=== PATIENT | male | born 1955 | race Caucasian/White ===

== ENCOUNTER 2020-07-14 07:44 | Outpatient (CLI) | payer BC, SELFPAY ==
[2020-07-15 15:20] LABS: SARS-CoV-2 RNA PCR Negative
== END 2020-07-14 07:45 | disposition home or self-care (01) ==
LOC: CHSLAB 07:48
PROVIDERS: PCP Internal Medicine; Visit Provider Internal Medicine
DX: J06.9 Acute upper respiratory infection, unspecified (principal); R11.2 Nausea with vomiting, unspecified; Z20.828 Contact with and (suspected) exposure to other viral communicable diseases
CPT/HCPCS: 87635; C9803; U0003

== ENCOUNTER 2020-07-18 12:38 | Inpatient (IN) | payer BC, SELFPAY ==
--- NOTE | ~2020-07-18 | CT_ITS ---
EXAMINATION: CT chest abdomen pelvis w con DATE: 07/18/2020 18:05 INDICATION: Left pleuritic chest pain. Epigastric abdominal pain, nausea. TECHNIQUE: Computed tomography (CT) of the chest, abdomen, and pelvis was performed with 100 cc Omnip aque 350 intravenous contrast. Automated exposure control and iterative reconstruction technique were employed. Exam dose: 1938.90 mGy-cm total exam DLP. COMPARISON: None FINDINGS: CHEST CT: There is homogeneous enhancement within normal size of the thyroid gland. No thoracic aortic aneurysm or dissection. Normal heart size. No pericardial effusion. No right pleural effusion. Likely reactive lymph nodes including one larger node at lateral aspect of the aortopulmonary window measuring 10.5 x 18.5 mm. There is moderate loculated left pleural effusion. There is prominent patchy consolidation with air b ronchograms involving the left lower lobe. There is minimal dependent infiltrate or atelectasis in the posterior segment of the left upper lobe. There is minimal atelectasis at the base of the middle lobe. ABDOMEN/PELVIS CT: There are some focal areas of probable hepatic steatosis involving the left and right hepatic lobes. Borderline splenomegaly, the spleen measuring up to 13.5 cm vertical dimension. There is soft tissue density in the dependent aspect of the gallbladder, likely due to cholelithiasis versus sludge or less likely soft tissue mass lesion. No bile duct or pancreatic duct dilatation. No pancreatic mass lesion or calcification. Approximately 1.6 cm Calcifications right adrenal gland Moderate diffuse thickening of the urinary bladder wall Moderate prostatomegaly Fluid levels of the colon, which may indicate colitis probable myelolipoma of the left adrenal gland. There are some calcifications of the right adrenal gland. No renal mass lesion. No urinary tract calculus or hydroureteronephrosis. There is atherosclerotic calcification of the abdominal aorta. No intraperitoneal or retroperitoneal or pelvic mass lesion or adenopathy or ascites. There is moderate diffuse nonspecific thickening of the wall of the urinary bladder. Moderate prostat omegaly. There are numerous fluid levels of the colon which is abnormal unless there have been recent enemas. This may indicate colitis. Status post appendectomy. No bowel obstruction, bowel wall thickening, pneumatosis or intraperitoneal free air. Status post lower anterior abdominal wall hernia repair. Degenerative changes of the cervical, thoracic and lumbar spine. No suspicious osteolytic or osteobla stic lesions are detected. 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 Reviewed, dictated and finalized at [facility]. 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
--- NOTE | ~2020-07-18 | CT_ITS ---
EXAMINATION: CT brain wo con DATE: 07/18/2020 18:04 INDICATION: Confusion. Altered mental status. TECHNIQUE: Computed tomography (CT) of the head was performed without intravenous contrast. The mA wa s adjusted according to patient size. Iterative reconstruction technique was employed. Exam dose: 68 1.00 mGy-cm total exam DLP. COMPARISON: None FINDINGS: No intracranial mass lesion or hemorrhage or cerebrovascular accident is evident. No midlin e shift or mass effect. There is moderately prominent bilateral cerebellar atrophy and mild cerebral volume loss. There is no nspecific diminished attenuation cerebral white matter, likely due to chronic small vessel ischemic c hange. Some carotid siphon internal carotid artery calcifications are noted. No subdural or epidural hematoma is detected. Mucous retention cyst or polyp in the right maxillary sinus and some focal soft tissue thickening genevieve ng the medial wall left maxillary sinus are noted. There is mild soft tissue thickening in some ethmoid air cells and mild mucoperiosteal thickening of the right sphenoid sinus. The mastoid air cells are unremarkable. No fracture or bone destruction of the cranial vault. IMPRESSION: Cerebral atherosclerosis and chronic small vessel ischemic changes of the cerebral white matter Prominent cerebellar and mild cerebral volume loss No acute intracranial finding Reviewed, dictated and finalized at [facility]. Reviewed, dictated and finalized at [facility]. P CATCHER
[2020-07-18 12:56] VITALS: BP 127/74; PULSE 75; RESP 20; TEMP 36.8
[2020-07-18 12:58] VITALS: BMI 37.0
[2020-07-18 13:05] VITALS: RESP 18; O2SAT 95
--- NOTE | 2020-07-18 13:15 | PM.IMHP ---
H&P: HPI History of Present Illness Date/Time: 07/18/20 13:15 <KLARISSA Javier - Last Filed: 07/18/20 15:28> Chief complaint: pneumonia <KLARISSA Javier - Last Filed: 07/18/20 15:28> Narrative: Tavon Marsh is a 65 year old male that presented to his primary care physician office with fatigue, shortness of breath, altered mental status, and decreased appetite. Patient has a past medical history of hyperlipidemia, hypertension, sleep apnea, PUD and steatohepatitis. According to the patient's patient has had nausea and vomiting for approximately 1 week. He later developed shortness of breath, cough, decreased appetite, fatigue, subjective low-grade fever, and chills. According to patient's he has been is also confused and laid in the bed for several days he did have a recent Covid test which was negative. Patient primary care physician would like for the patient to be admitted for community-acquired pneumonia, nausea vomiting and dehydration in hypersomnolence and mild disorientation. I have started IV fluid for the patient he will get a CT of the head abdomen and pelvis .I have also ordered a UA with a lactic acid CBC, BMP ,CRP and ammonia level. All tests are pending .the patient denies, CP, palpitation, extremity numbness, lightheadedness, dizziness, and constipation . Patient has chronic diarrhea <KLARISSA Javier - Last Filed: 07/18/20 15:28> Review of Systems Review of Systems: All systems reviewed & are unremarkable except as noted in HPI and below (10 point system review) <KLARISSA Javier - Last Filed: 07/18/20 15:28> [facility] Past Medical History Medical History: Medical History (Updated 07/18/20 @ 14:31 by KLARISSA Javier) Erectile dysfunction HLD (hyperlipidemia) HTN (hypertension) Obesity Osteoarthritis Primarily affecting the knees PUD (peptic ulcer disease) Rheumatoid arthritis On pathology of debrided material from knee Sleep apnea dx'd 2010 positive sleep study uses CPAP moderate GISELE, AHI-14 darlin SaO2 89% Steatohepatitis Mild portal fibrosis, moderate iron accumulation on biopsy 07/29/2012 <KLARISSA Javier - Last Filed: 07/18/20 15:28> Surgical History Surgical History: Surgical History (Updated 07/18/20 @ 13:40 by KLARISSA Javier) H/O hernia repair Bilateral inguinal with mesh H/O knee surgery History of appendectomy <KLARISSA Javier - Last Filed: 07/18/20 15:28> Family History Family History: Family History (Updated 07/18/20 @ 13:06 by Shante Jay RN) Mother FH: heart attack Father Emphysema lung Sibling Hypertension <KLARISSA Javier - Last Filed: 07/18/20 15:28> Social History Social History: Social History Smoking status: Never smoker Alcohol intake: current Drinks per week: 3 Substance use: never Substance use type: does not use Gender identity (if verbalized by the patient): Male Sexual Orientation (if Verbalized by the Patient): Straight or Heterosexual Spiritual care concerns: No <KLARISSA Javier - Last Filed: 07/18/20 15:28> Meds Home Medications and Allergies Home medications: Home Medications Medication Instructions Recorded Confirmed Type Benadryl 25 mg PO HS 07/18/20 07/18/20 History allopurinol 300 mg PO DAILY 07/18/20 07/18/20 History carvedilol 25 mg PO BID 07/18/20 07/18/20 History fexofenadine [Allergy Relief 180 mg PO DAILY 07/18/20 07/18/20 History (fexofenadine)] furosemide 40 mg PO DAILY 07/18/20 07/18/20 History hydrochlorothiazide 25 mg PO DAILY 07/18/20 07/18/20 History montelukast 10 mg PO QPM 07/18/20 07/18/20 History paroxetine HCl 10 mg PO DAILY 07/18/20 07/18/20 History potassium chloride 20 meq PO BIDWMEAL 07/18/20 07/18/20 History pravastatin 40 mg PO DAILY 07/18/20 07/18/20 History vitamin E 800 unit PO DIRECTED 07/18/20 07/18/20 History <KLARISSA Javier - Last Fi
[2020-07-18 13:16] VITALS: BMI 37.0
[2020-07-18] MEDS: SODIUM CHLORIDE 0.9% IV 1,000 ML 100 ML IV CONT (13:29)
[2020-07-18 13:45] LABS: Basophils Absolute Auto 0.03 K/mm3 (0.00-0.10); Basophils Percent Auto 0.3 % (0.0-1.0); Eosinophils Absolute Auto 0.05 K/mm3 (0.02-0.50); Eosinophils Percent Auto 0.6 % (1.0-6.0); Hematocrit 38.5 % (40.0-54.0); Hemoglobin 13.7 g/dL (14.0-18.0); Immature Granulocyte Absolute 0.77 K/mm3 (0.00-0.00); Immature Granulocyte Percent A 8.6 % (0.0-0.0); Lymphocytes Absolute Auto 2.05 K/mm3 (1.10-4.50); Lymphocytes Percent Auto 22.8 % (18.0-42.0); Mean Corpuscular HGB Conc 35.6 g/dL (32.0-36.0); Mean Corpuscular Hemoglobin 33.9 pg (27.0-31.0); Mean Corpuscular Volume 95.3 fL (78.0-102.0); Monocytes Absolute Auto 1.04 K/mm3 (0.10-0.90); Monocytes Percent Auto 11.6 % (2.0-11.0); Neutrophils Absolute Auto 5.1 K/mm3 (1.7-7.2); Neutrophils Percent Auto 56.1 % (50.0-70.0); Platelet Count Result 162 K/mm3 (150-420); Red Blood Count 4.04 M/mm3 (4.70-6.10); Red Cell Distribution Width 12.1 % (11.6-14.4)
[2020-07-18 14:24] LABS: Magnesium 2.1 mg/dL (1.8-2.4)
[2020-07-18 14:27] LABS: Ammonia 54 umol/L (11-32)
[2020-07-18 14:36] LABS: Lactic Acid Reflex 1.4 mmol/L (0.4-2.0)
[2020-07-18 14:43] LABS: CRP > 25.0 mg/dL (0.0-0.9)
[2020-07-18 14:43] LABS: BNP 94 pg/mL (0-100)
[2020-07-18 14:55] LABS: Hemoglobin A1C 5.3 % (<5.7)
[2020-07-18 15:00] LABS: Alanine Aminotransferase 57 U/L (16-63); Albumin Level 2.8 g/dL (3.4-5.0); Alkaline Phosphatase 103 U/L (46-116); Anion Gap 13 mmol/L (8-16); Aspartate Amino Transferase 53 U/L (15-37); Bilirubin,Total 1.2 mg/dL (0.00-1.00); Blood Urea Nitrogen 15 mg/dL (7-18); Calcium 8.8 mg/dL (8.5-10.1); Carbon Dioxide 28 mmol/L (21-32); Chloride 91 mmol/L (98-108); Estimated CRCL calculation 87 ml/min; Estimated Glomerular Filt Rate > 60; Glucose 96 mg/dL (70-99); Osmolality Calculated 274 mOsm/kg (285-295); Potassium 3.2 mmol/L (3.5-5.1); Sodium 132 mmol/L (136-145); Total Protein 6.1 g/dL (6.4-8.2)
[2020-07-18] MEDS: LACTULOSE 20 GM/30 ML UDC PO (15:20)
[2020-07-18 15:37] LABS: Add Urine Microscopic? YES; Appearance Urine Clear (Clear); Bilirubin Urine Negative (Negative); Blood Urine Negative (Negative); Color Urine Yellow (Yellow); Glucose Urine UA Negative (Negative); Ketones Urine Negative (Negative); Leukocyte Esterase Ur Negative (Negative); Nitrate Urine Negative (Negative); Protein Urine Negative (Negative)
[2020-07-18 15:43] LABS: Bacteria Urine 1+ /hpf; RBC Urine 0-2 /hpf (0-2); Squamous Epithelial Cell Urine Few /hpf (Few); WBC Urine 0-3 /hpf (0-3)
[2020-07-18 16:00] VITALS: BP 137/68; PULSE 86; RESP 18; TEMP 37.6; O2SAT 95
[2020-07-18] MEDS: KCL 20 MEQ/SW 100 ML 100 ML 50 MEQ IVPB (16:07)
[2020-07-18] MEDS: POTASSIUM CHLORIDE 20 MEQ TABLET PO (16:40)
[2020-07-18] MEDS: POTASSIUM CHLORIDE 20 MEQ TABLET 40 MEQ PO (16:40)
[2020-07-18] MEDS: ENOXAPARIN 40 MG/0.4 ML SYRINGE SUB-Q (16:40)
[2020-07-18] MEDS: MONTELUKAST SODIUM 10 MG TABLET PO (16:41)
[2020-07-18 20:01] VITALS: BP 130/69; PULSE 86; TEMP 37.4; O2SAT 93
[2020-07-18 20:20] VITALS: PULSE 86
[2020-07-18] MEDS: diphenhydrAMINE HCl INJ 50 MG/ML VIAL IV PUSH (20:20)
[2020-07-18] MEDS: MELATONIN 5 MG TABLET PO (20:20)
[2020-07-18] MEDS: carvediloL 12.5 MG TABLET 25 MG PO (20:20)
--- NOTE | 2020-07-18 20:51 | PC.NURSE ---
Patient requested medication to help him sleep. Continues to experience pain in left lower side. Declined pain medication at this time-hoping to go to sleep. LLL sounds diminished with high pitched wheeze.
[2020-07-18 23:51] VITALS: BP 108/63; PULSE 73; RESP 18; TEMP 37.6; O2SAT 93
--- NOTE | 2020-07-19 02:00 | PC.NURSE ---
pt reports pain in left side, and difficulty sleeping, pt given medication see MAR
[2020-07-19] MEDS: SODIUM CHLORIDE 0.9% IV 1,000 ML 100 ML IV CONT ×2 (02:02→15:30)
[2020-07-19] MEDS: traZODone HCL 50 MG TABLET PO (02:03)
[2020-07-19] MEDS: HYDROcodone/acetaminophen (*CRX) 5-325 MG TABLET 1 TAB PO ×4 (02:03→20:58)
[2020-07-19 05:49] LABS: Hematocrit 37.8 % (40.0-54.0); Mean Corpuscular HGB Conc 34.4 g/dL (32.0-36.0); Mean Corpuscular Hemoglobin 33.1 pg (27.0-31.0); Mean Corpuscular Volume 96.2 fL (78.0-102.0); Mean Platelet Volume 9.9 fl (8.7-11.0); Platelet Count Result 164 K/mm3 (150-420); Red Blood Count 3.93 M/mm3 (4.70-6.10); Red Cell Distribution Width 12.1 % (11.6-14.4); White Blood Count 8.8 K/mm3 (4.8-10.8)
[2020-07-19 06:10] LABS: Alanine Aminotransferase 61 U/L (16-63); Albumin Level 2.5 g/dL (3.4-5.0); Alkaline Phosphatase 101 U/L (46-116); Anion Gap 9 mmol/L (8-16); Aspartate Amino Transferase 48 U/L (15-37); Bilirubin,Total 0.8 mg/dL (0.00-1.00); Blood Urea Nitrogen 12 mg/dL (7-18); Calcium 9.2 mg/dL (8.5-10.1); Carbon Dioxide 30 mmol/L (21-32); Chloride 95 mmol/L (98-108); Estimated CRCL calculation 89 ml/min; Estimated Glomerular Filt Rate > 60; Glucose 104 mg/dL (70-99); Osmolality Calculated 277 mOsm/kg (285-295); Potassium 3.2 mmol/L (3.5-5.1); Sodium 134 mmol/L (136-145); Total Protein 6.7 g/dL (6.4-8.2)
[2020-07-19 06:13] LABS: Band Neutrophils Percent 2 % (0-6); Basophils Percent Manual 0 % (0-1); Eosinophils Absolute Manual 0.08 K/mm3 (0.02-0.5); Eosinophils Percent Manual 1 % (1-6); Lymphocytes Absolute Manual 2.37 K/mm3 (1.1-4.5); Lymphocytes Percent Manual 27 % (18-44); Metamyelocytes Percent 1 %; Monocytes Absolute Manual 0.35 K/mm3 (0.1-0.90); Monocytes Percent Manual 4 % (3-9); Myelocytes Percent 1 %; Neutrophils Percent Manual 64 % (46-73); Platelet Estimate Adequate (Adequate)
[2020-07-19 06:26] LABS: CRP 23.4 mg/dL (0.0-0.9)
[2020-07-19 08:00] VITALS: BP 137/71; PULSE 69; RESP 18; TEMP 37.2; O2SAT 94
[2020-07-19] MEDS: PRAVASTATIN SODIUM 20 MG TABLET 40 MG PO (09:14)
[2020-07-19] MEDS: PARoxetine 20 MG TABLET 10 MG PO (09:15)
[2020-07-19] MEDS: POTASSIUM CHLORIDE 20 MEQ TABLET 40 MEQ PO (09:15)
[2020-07-19 09:16] VITALS: PULSE 69
[2020-07-19] MEDS: carvediloL 12.5 MG TABLET 25 MG PO ×2 (09:16→20:57)
[2020-07-19] MEDS: LORATADINE 10 MG TABLET PO (09:16)
[2020-07-19] MEDS: ACETAMINOPHEN 500 MG TABLET 1000 MG PO (09:17)
[2020-07-19] MEDS: allopurinoL 300 MG TABLET PO (09:17)
[2020-07-19] MEDS: PANTOPRAZOLE SOD SESQUIHYDRATE 20 MG TAB PO (09:17)
[2020-07-19] MEDS: POTASSIUM CHLORIDE 20 MEQ TABLET PO ×2 (09:19→16:50)
[2020-07-19] MEDS: VITAMIN E 400 UNIT CAPSULE 800 UNIT PO (09:53)
--- NOTE | 2020-07-19 14:15 | PM.IMPN ---
Progress Note: A&P Assessment and Plan (1) Depression with anxiety: Code(s): F41.8 - Other specified anxiety disorders Status: Acute Assessment and Plan: 07/19/2020 Continue Paxil, patient has normal mood and affect (2) PUD (peptic ulcer disease): Code(s): K27.9 - Peptic ulcer, site unspecified, unspecified as acute or chronic, without hemorrhage or perforation Status: Acute Assessment and Plan: 07/19/2020 Continue Protonix, will continue on discharge (3) Sleep apnea: Code(s): G47.30 - Sleep apnea, unspecified Status: Acute Assessment and Plan: 07/19/2020 patient using CPAP from home (4) HTN (hypertension): Code(s): I10 - Essential (primary) hypertension Status: Acute Assessment and Plan: 07/19/2020 vital signs stable, low-grade temp 99.7 F this morning this afternoon 99 F, Continue carvedilol 25 mg twice daily, Hydrochlorothiazide 25 mg daily on hold due to dehydration, Will adjust medication as needed, may need to decrease diuretic on discharge (5) HLD (hyperlipidemia): Code(s): E78.5 - Hyperlipidemia, unspecified Status: Acute Assessment and Plan: Continue statins (6) Dehydration: Code(s): E86.0 - Dehydration Status: Acute Assessment and Plan: Continue IV fluids (7) Encephalopathy: Code(s): G93.40 - Encephalopathy, unspecified Status: Acute Assessment and Plan: 07/19/2020 patient does not have any symptoms at this time, continue lactulose, recheck ammonia level in morning, CRP decreased today Ammonia level slightly elevated patient given lactulose, CT of head chest abdomen pelvis resulted above (8) Nausea & vomiting: Code(s): R11.2 - Nausea with vomiting, unspecified Status: Acute Assessment and Plan: 07/19/2020 resolved (9) Hypersomnolence: Code(s): G47.10 - Hypersomnia, unspecified Status: Acute Assessment and Plan: 07/19/2020 resolved (10) Obesity: Code(s): E66.9 - Obesity, unspecified Status: Acute Assessment and Plan: 07/19/2020 Educated on healthy lifestyle, heart healthy diet on discharge (11) Pneumonia: Code(s): J18.9 - Pneumonia, unspecified organism Status: Acute Assessment and Plan: 07/19/2020 patient is currently on room air SpO2 93% or better, Rocephin and azithromycin, will continue azithromycin on discharge to complete course, patient case breathing is improved Subjective Date/time seen: 07/19/20 14:15 patient states he is feeling better able to breathe better and apparently is nausea and vomiting is resolved because he is feeling like eating this morning. No complaints of chest pain or shortness of breath at this time. Patient has no other questions aside from the discovered loculation in his lung and what is to be the plan moving forward. Review of Systems Constitutional: Constitutional: Denies chills, Denies fatigue, Denies fever(s), Denies headache(s) and Reports increased appetite (and no nausea or vomiting) Cardiovascular: Cardiovascular: Reports no additional cardiovascular complaints, Denies chest pain, Denies chest pain at rest and Denies chest pain with activity Respiratory: Respiratory: Reports no additional respiratory complaints, Denies dyspnea and Denies dyspnea on exertion Gastrointestinal: Gastrointestinal: Reports no additional gastrointestinal complaints Comments: patient says he is hungry in would like to have a big breakfast Musculoskeletal: Musculoskeletal: Reports no additional musculoskeletal complaints Neurologic: Reports system reviewed and no additional complaints, except as documented Exam Narrative: Exam Narrative: patient's primary care provider was contacted for the discussion of the plan for moving forward regarding the loculated area in the lung. The outcome of this is to discharge patient in the morning have a quick follow-up wit
[2020-07-19 16:00] VITALS: BP 121/55; PULSE 67; RESP 18; TEMP 37.5; O2SAT 96
[2020-07-19] MEDS: ENOXAPARIN 40 MG/0.4 ML SYRINGE SUB-Q (16:50)
[2020-07-19] MEDS: MONTELUKAST SODIUM 10 MG TABLET PO (16:58)
[2020-07-19 20:00] VITALS: PULSE 75; RESP 18; O2SAT 97
[2020-07-19 20:57] VITALS: PULSE 75
[2020-07-19] MEDS: MELATONIN 5 MG TABLET PO (20:58)
[2020-07-20] VITALS: BP 130/50; PULSE 78; RESP 20; TEMP 37.2; O2SAT 94
[2020-07-20] MEDS: SODIUM CHLORIDE 0.9% IV 1,000 ML 100 ML IV CONT (01:06)
[2020-07-20 05:32] LABS: Hematocrit 36.4 % (40.0-54.0); Hemoglobin 12.3 g/dL (14.0-18.0); Mean Corpuscular HGB Conc 33.8 g/dL (32.0-36.0); Mean Corpuscular Hemoglobin 33.2 pg (27.0-31.0); Mean Corpuscular Volume 98.4 fL (78.0-102.0); Mean Platelet Volume 9.7 fl (8.7-11.0); Platelet Count Result 172 K/mm3 (150-420); Red Cell Distribution Width 12.7 % (11.6-14.4)
[2020-07-20 05:53] LABS: Alanine Aminotransferase 58 U/L (16-63); Albumin Level 2.1 g/dL (3.4-5.0); Alkaline Phosphatase 84 U/L (46-116); Anion Gap 7 mmol/L (8-16); Aspartate Amino Transferase 44 U/L (15-37); Bilirubin,Total 0.5 mg/dL (0.00-1.00); Blood Urea Nitrogen 11 mg/dL (7-18); Calcium 8.4 mg/dL (8.5-10.1); Carbon Dioxide 28 mmol/L (21-32); Chloride 101 mmol/L (98-108); Estimated CRCL calculation 100 ml/min; Estimated Glomerular Filt Rate > 60; Glucose 105 mg/dL (70-99); Osmolality Calculated 281 mOsm/kg (285-295); Potassium 3.5 mmol/L (3.5-5.1); Sodium 136 mmol/L (136-145); Total Protein 5.9 g/dL (6.4-8.2)
[2020-07-20 06:11] LABS: Ammonia < 10 umol/L (11-32)
[2020-07-20 08:00] VITALS: BP 148/82; PULSE 76; RESP 16; TEMP 36.6; O2SAT 96
[2020-07-20 08:48] VITALS: PULSE 68
[2020-07-20] MEDS: LORATADINE 10 MG TABLET PO (08:48)
[2020-07-20] MEDS: carvediloL 12.5 MG TABLET 25 MG PO (08:48)
[2020-07-20] MEDS: VITAMIN E 400 UNIT CAPSULE 800 UNIT PO (08:48)
[2020-07-20] MEDS: PRAVASTATIN SODIUM 20 MG TABLET 40 MG PO (08:48)
[2020-07-20] MEDS: PARoxetine 20 MG TABLET 10 MG PO (08:49)
[2020-07-20] MEDS: POTASSIUM CHLORIDE 20 MEQ TABLET PO (08:50)
[2020-07-20] MEDS: PANTOPRAZOLE SOD SESQUIHYDRATE 20 MG TAB PO (08:50)
[2020-07-20] MEDS: allopurinoL 300 MG TABLET PO (08:50)
--- NOTE | 2020-07-20 09:50 | PM.DS ---
DS: Admitting Diagnosis Admitting Diagnosis Admitting Diagnosis: pneumonia DS: Discharge Diagnosis Discharge Diagnosis (1) Depression with anxiety: Code(s): F41.8 - Other specified anxiety disorders Status: Acute Assessment and Plan: 07/19/2020 Continue Paxil, patient has normal mood and affect 07/20/2020 Will continue Paxil on discharge (2) PUD (peptic ulcer disease): Code(s): K27.9 - Peptic ulcer, site unspecified, unspecified as acute or chronic, without hemorrhage or perforation Status: Acute Assessment and Plan: 07/19/2020 Continue Protonix, will continue on discharge 07/20/2020 will continue home medication on discharge (3) Sleep apnea: Code(s): G47.30 - Sleep apnea, unspecified Status: Acute Assessment and Plan: 07/19/2020 patient using CPAP from home 07/20/2020 patient has been compliant with the CPAP in the hospital and will continue on discharge (4) HTN (hypertension): Code(s): I10 - Essential (primary) hypertension Status: Acute Assessment and Plan: 07/19/2020 vital signs stable, low-grade temp 99.7 F this morning this afternoon 99 F, Continue carvedilol 25 mg twice daily, Hydrochlorothiazide 25 mg daily on hold due to dehydration, Will adjust medication as needed, may need to decrease diuretic on discharge 07/20/2020 vital signs have been stable low-grade temp 99? F, no changes to medication on discharge (5) HLD (hyperlipidemia): Code(s): E78.5 - Hyperlipidemia, unspecified Status: Acute Assessment and Plan: Continue statins (6) Dehydration: Code(s): E86.0 - Dehydration Status: Acute Assessment and Plan: 07/20/2020 IV fluids discontinued this time, encourage patient to drink fluids after discharge (7) Encephalopathy: Code(s): G93.40 - Encephalopathy, unspecified Status: Acute Assessment and Plan: 07/19/2020 patient does not have any symptoms at this time, continue lactulose, recheck ammonia level in morning, CRP decreased today 07/20/2020 ammonia level normalized this morning, continues to be asymptomatic (8) Nausea & vomiting: Code(s): R11.2 - Nausea with vomiting, unspecified Status: Acute Assessment and Plan: 07/19/2020 resolved (9) Hypersomnolence: Code(s): G47.10 - Hypersomnia, unspecified Status: Acute Assessment and Plan: 07/19/2020 resolved (10) Obesity: Code(s): E66.9 - Obesity, unspecified Status: Acute Assessment and Plan: 07/19/2020 Educated on healthy lifestyle, heart healthy diet on discharge (11) Pneumonia: Code(s): J18.9 - Pneumonia, unspecified organism Status: Acute Assessment and Plan: 07/19/2020 patient is currently on room air SpO2 93% or better, Rocephin and azithromycin, will continue azithromycin on discharge to complete course, patient case breathing is improved 07/20/2020 vital signs remained stable, maintaining SpO2 94% or better on room air, patient did have a little bit of blood tinged sputum this morning in minimal amounts less than 5 mL, there was no change in respiratory status, no complaints of shortness of breath or increased work of breathing, discussed with his primary care provider who was okay with patient being discharged with close follow-up, and will be sending patient to a hose mender for the loculated pleural effusion DS: Summary Time Spent with Patient Time attestation: Total time spent providing and/or coordinating discharge services: < 30 min Exam Const: General: cooperative, comfortable, no acute distress, alert, awake and Physically active Nutritional Appearance: obese Resp: Effort & Inspection: normal respiratory effort Auscultation: clear to auscultation bilaterally (diminished on the left side ) Cardio: Jugular venous distension: no JVD Rate: regular rate Rhythm: regular rhythm Heart sounds: S1 normal heart sound pre
--- NOTE | 2020-07-22 14:13 | PC.NURSE ---
Unable to contact for discharge call back.
== END 2020-07-20 12:00 | disposition home or self-care (01) | DRG 194 ==
PROVIDERS: Nurse Practitioner; Nurse Practitioner Family; Admitting Provider Emergency Medicine; PCP Internal Medicine; Visit Provider Emergency Medicine
DX: J18.9 Pneumonia, unspecified organism (principal); G93.40 Encephalopathy, unspecified; J90 Pleural effusion, not elsewhere classified; E86.0 Dehydration; I10 Essential (primary) hypertension; M06.9 Rheumatoid arthritis, unspecified; K27.9 Peptic ulcer, site unspecified, unspecified as acute or chronic, without hemorrhage or perforation; K75.81 Nonalcoholic steatohepatitis (NASH); M17.10 Unilateral primary osteoarthritis, unspecified knee; E78.5 Hyperlipidemia, unspecified; G47.33 Obstructive sleep apnea (adult) (pediatric); F32.9 Major depressive disorder, single episode, unspecified; E66.9 Obesity, unspecified
CPT/HCPCS: 36415; 70450; 71260; 74177; 80053; 81001; 82140; 83036; 83605; 83735; 83880; 85025; 85027; 86140; 87040; 97110; 97161; 97165; 97530; 97535; A9270; J0456; J0696; J1200; J1650; J3480; J7030; Q9965

== ENCOUNTER 2020-07-29 08:52 | Outpatient (CLI) | payer BC, SELFPAY ==
--- NOTE | ~2020-07-29 | CT_ITS ---
EXAMINATION: CT chest wo con DATE: 07/29/2020 09:31 INDICATION: Left chest pain. Left lower lobe consolidation, moderate loculated left pleural effusion, minimal infiltrate or atelectasis in the dependent posterior segment of left upper lobe and base of middle lobe on 07/28/2020 CT chest abdomen pelvis examination TECHNIQUE: Computed tomography (CT) of the chest was performed without intravenous contrast. Automate d exposure control and iterative reconstruction technique were employed. Exam dose: 840.55 mGy-cm to narinder exam DLP. COMPARISON: 07/28/2020 CT chest abdomen pelvis FINDINGS: Mild bilateral gynecomastia. No thoracic aortic aneurysm. Normal heart size. There is mild thoracic aortic and coronary artery melissa cification. No hilar or mediastinal mass lesion or lymphadenopathy is evident. There is mild groundglass infiltrate and/atelectasis at the base of the middle lobe. There is discoid atelectasis or scarring of the lingula. There is patchy left lower lobe atelectasis and consolidation with air bronchograms, particularly in the posterior basilar segment. There are multiple small dependent gallstones. No gallbladder wall thickening or pericholecystic flui d or stranding. There are some calcifications of the normal size right adrenal gland. Small lipoma or myelolipoma of the left adrenal gland. Degenerative disc disease of the included lower thoracic spine. Diffuse idiopathic skeletal hyperostosis of the thoracic spine. IMPRESSION: Patchy left lower lobe atelectasis/consolidation, involving particularly the posterior b asilar segment Discoid atelectasis or scarring of the lingula Mild groundglass infiltrate or atelectasis at the base of the middle lobe Cholelithiasis Reviewed, dictated and finalized at [facility]. Reviewed, dictated and finalized at [facility]. LATORY PRODUCT MANAGER IMPRESSION: Patchy left lower lobe atelectasis/consolidation, involving partic ularly the posterior basilar segment Discoid atelectasis or scarring of the lingula Mild groundglass infiltrate or atelectasis at the base of the middle lobe Cholelithiasis
== END 2020-07-29 08:53 | disposition home or self-care (01) ==
LOC: CHSIMG 08:56
PROVIDERS: PCP Internal Medicine
DX: J90 Pleural effusion, not elsewhere classified (principal)
CPT/HCPCS: 71250

== ENCOUNTER 2020-08-19 09:11 | Outpatient (CLI) | payer BC, SELFPAY ==
--- NOTE | ~2020-08-19 | XR_ITS ---
EXAMINATION: XR chest 2V DATE: 08/19/2020 10:32 INDICATION: Chest tightness. Pneumonia. TECHNIQUE: Frontal and lateral views of the chest were obtained. COMPARISON: Chest 2 views 08/31/2014, chest CT 07/29/2020, 07/18/2020 FINDINGS: There are airspace opacities in left lower lung zone. Left-sided pleural thickening is seen . No pleural effusion or pneumothorax. The heart size is normal. IMPRESSION: 1. Persistent airspace opacities in left lower lung zone, consistent with pneumonia and scarring. Reviewed, dictated and finalized at [facility]. ICATIONS SUPPORT SPECIALIST IMPRESSION: 1. Persistent airspace opacities in left lower lung zone, consistent with pneum onia and scarring.
[2020-08-19 10:50] LABS: Basophils Absolute Auto 0.01 K/mm3 (0.00-0.10); Basophils Percent Auto 0.3 % (0.0-1.0); Eosinophils Absolute Auto 0.09 K/mm3 (0.02-0.50); Eosinophils Percent Auto 2.3 % (1.0-6.0); Hematocrit 40.6 % (40.0-54.0); Hemoglobin 14.1 g/dL (14.0-18.0); Immature Platelet Fraction Pct 2.7 % (1.0-7.0); Lymphocytes Absolute Auto 1.85 K/mm3 (1.10-4.50); Lymphocytes Percent Auto 46.8 % (18.0-42.0); Mean Corpuscular HGB Conc 34.7 g/dL (32.0-36.0); Mean Corpuscular Hemoglobin 33.1 pg (27.0-31.0); Mean Corpuscular Volume 95.3 fL (78.0-102.0); Mean Platelet Volume 10.4 fl (8.7-11.0); Monocytes Absolute Auto 0.49 K/mm3 (0.10-0.90); Monocytes Percent Auto 12.4 % (2.0-11.0); Neutrophils Absolute Auto 1.5 K/mm3 (1.7-7.2); Neutrophils Percent Auto 38.2 % (50.0-70.0); Platelet Count Result 92 K/mm3 (150-420); Red Blood Count 4.26 M/mm3 (4.70-6.10); Red Cell Distribution Width 12.7 % (11.6-14.4)
[2020-08-19 10:51] LABS: Alanine Aminotransferase 46 U/L (16-63); Albumin Level 3.8 g/dL (3.4-5.0); Alkaline Phosphatase 61 U/L (46-116); Anion Gap 8 mmol/L (8-16); Aspartate Amino Transferase 36 U/L (15-37); Bilirubin,Total 0.5 mg/dL (0.00-1.00); Blood Urea Nitrogen 15 mg/dL (7-18); CRP 0.5 mg/dL (0.0-0.9); Calcium 8.7 mg/dL (8.5-10.1); Carbon Dioxide 29 mmol/L (21-32); Chloride 99 mmol/L (98-108); Estimated Glomerular Filt Rate > 60; Glucose 112 mg/dL (70-99); Osmolality Calculated 283 mOsm/kg (285-295); Potassium 3.9 mmol/L (3.5-5.1); Sodium 136 mmol/L (136-145)
[2020-08-19 10:54] LABS: Ammonia < 10 umol/L (11-32)
[2020-08-19 10:57] LABS: SARS-CoV-2 Ag Positive (Negative)
== END 2020-08-19 09:12 | disposition home or self-care (01) ==
LOC: CHSLAB 09:13
PROVIDERS: PCP Internal Medicine; Visit Provider Internal Medicine
DX: U07.1 COVID-19 (principal); J18.9 Pneumonia, unspecified organism; E87.6 Hypokalemia
CPT/HCPCS: 36415; 71046; 80053; 82140; 85025; 85055; 86140; 86769; 87426

== ENCOUNTER 2020-08-30 10:45 | Emergency (ER) | payer BC, SELFPAY ==
--- NOTE | ~2020-08-30 | XR_ITS ---
EXAMINATION: XR chest 1V portable EXAM DATE: 08/30/2020 11:14 INDICATION: uri, dyspnea, hx of COVID. TECHNIQUE: Portable AP frontal chest x-ray was obtained. Comparison is made to prior examination from 08/19/2020. FINDINGS: Previous exam had left lower lobe pneumonia and atelectasis. On this exam there is now more extensive bilateral peripheral acute airspace disease, distribution is consistent with COVID pneumon ia. Relative sparing of the left upper lobe. No pneumothorax or pleural effusion. Cardiomediastinal s ilhouette is normal. There are no osseous abnormalities identified. IMPRESSION: Moderate amount of bilateral peripheral acute airspace disease likely COVID pneumonia. Reviewed, dictated and finalized at location B. EXTINGUISHER INSTALLER IMPRESSION: Moderate amount of bilateral peripheral acute airspace disease lik quique COVID pneumonia.
--- NOTE | 2020-08-30 10:51 | ECG_ITS ---
Measurements Intervals [place] Rate: 66 P: -13 TN: 132 QRS: 9 QRSD: 103 T: -14 QT: 393 QTc: 414 Interpretive Statements SINUS RHYTHM DELAYED PRECORDIAL R/S TRANSITION BORDERLINE T WAVE ABNORMALITY- INFERIOR LEADS BASELINE ARTIFACT- III, AVF BORDERLINE ECG Electronically Signed On 08-30-2020 11:04:31 MINISTER OF RELIGION by Huber Duncan D.O.
[2020-08-30 11:00] VITALS: BP 126/65; PULSE 66; RESP 16; TEMP 36.6; O2SAT 95
--- NOTE | 2020-08-30 11:15 | ED.SOB ---
HPI - SOB/Dyspnea General Chief Complaint: Shortness of Breath/Dyspnea Stated Complaint: Low blood ox Source: patient and RN notes reviewed Mode of arrival: ambulatory Limitations: no limitations History of Present Illness HPI Narrative: Patient comes in because he has been having some low O2 saturations at home. This mostly happens with exertion. He is having increasing shortness of breath even with most simple tasks per his . He was diagnosed with COVID greater than 10 days ago. He is currently out of quarantine. He also was found to have a pulmonary abscess in July and states he just has not felt well since then. He has been on 2 rounds of Zithromax, 1 round of Levaquin, and also on Decadron when he had COVID. He continues to have increasing dyspnea but is not on any breathing treatments at. He denies any fever chills. MD elicited complaint: shortness of breath Pertinent past history: pneumonia Context: recent illness (COVID) Timing: intermittent Severity: moderate Related Data Home Medications Medication Instructions Recorded Confirmed allopurinol 300 mg PO DAILY 07/18/20 08/30/20 carvedilol 25 mg PO BID 07/18/20 08/30/20 furosemide 40 mg PO DAILY 07/18/20 08/30/20 hydrochlorothiazide 25 mg PO DAILY 07/18/20 08/30/20 montelukast 10 mg PO QPM 07/18/20 08/30/20 paroxetine HCl 10 mg PO DAILY 07/18/20 08/30/20 potassium chloride 20 meq PO BIDWMEAL 07/18/20 08/30/20 pravastatin 40 mg PO DAILY 07/18/20 08/30/20 vitamin E 800 unit PO DIRECTED 07/18/20 08/30/20 Allergies Allergy/AdvReac Type Severity Reaction Status Date / Time diclofenac AdvReac Other Verified 07/18/20 13:15 lisinopril AdvReac Rash Verified 07/18/20 13:14 misoprostol AdvReac Other Verified 07/18/20 13:15 Review of Systems Constitutional: Constitutional: Denies chills, Denies fever(s) and Reports weakness Cardiovascular: Cardiovascular: Denies chest pain and Denies rapid heart rate Respiratory: Respiratory: Reports as per HPI Gastrointestinal: Gastrointestinal: Reports no additional gastrointestinal complaints Genitourinary: Genitourinary: Reports no additional male genitourinary complaints Musculoskeletal: Musculoskeletal: Reports no additional musculoskeletal complaints Integumentary/Breasts: Skin/Breast: Reports system reviewed and no additional complaints, except as docu Neurologic: Reports system reviewed and no additional complaints, except as documented Psychiatric: Psychiatric: Reports no additional psychiatric complaints Endocrine: Endocrine: Reports no additional endocrine complaints Hematologic/Lymphatic: Hematologic/Lymphatic: Reports no additional hematologic/lymphatic complaints PMFSH Past Medical History Medical History (Updated 08/30/20 @ 13:21 by Eliseo Lugo MD) Erectile dysfunction HLD (hyperlipidemia) HTN (hypertension) Obesity Osteoarthritis Primarily affecting the knees PUD (peptic ulcer disease) Rheumatoid arthritis On pathology of debrided material from knee Sleep apnea dx'd 2010 positive sleep study uses CPAP moderate GISELE, AHI-14 darlin SaO2 89% Steatohepatitis Mild portal fibrosis, moderate iron accumulation on biopsy 07/29/2012 Surgical History Surgical History (Updated 07/18/20 @ 13:40 by HALEY JavierP-C) H/O hernia repair Bilateral inguinal with mesh H/O knee surgery History of appendectomy Family History Family History (Updated 07/18/20 @ 13:06 by Shante Jay RN) Mother FH: heart attack Father Emphysema lung Sibling Hypertension Social History Social History Smoking status: Never smoker Alcohol intake: current Drinks per week: 3 Substance use: never Substance use type: does not use Gender identity (if verbalized by the patient): Male Spiritual care concerns: No Exam Const: General: no acute distress and ill appearing chronically Nutritional Appearance: well nourished Orientation/consciousness: patient oriented x3 HENMT:
[2020-08-30 11:16] LABS: Basophils Absolute Auto 0.01 K/mm3 (0.00-0.10); Basophils Percent Auto 0.1 % (0.0-1.0); Eosinophils Absolute Auto 0.16 K/mm3 (0.02-0.50); Eosinophils Percent Auto 2.1 % (1.0-6.0); Hematocrit 41.2 % (40.0-54.0); Hemoglobin 14.9 g/dL (14.0-18.0); Immature Granulocyte Percent A 1.3 % (0.0-0.0); Lymphocytes Absolute Auto 1.37 K/mm3 (1.10-4.50); Mean Corpuscular HGB Conc 36.2 g/dL (32.0-36.0); Mean Corpuscular Hemoglobin 32.6 pg (27.0-31.0); Mean Corpuscular Volume 90.2 fL (78.0-102.0); Mean Platelet Volume 8.7 fl (8.7-11.0); Monocytes Absolute Auto 0.58 K/mm3 (0.10-0.90); Monocytes Percent Auto 7.6 % (2.0-11.0); Neutrophils Absolute Auto 5.4 K/mm3 (1.7-7.2); Neutrophils Percent Auto 70.9 % (50.0-70.0); Platelet Count Result 195 K/mm3 (150-420); Red Blood Count 4.57 M/mm3 (4.70-6.10); Red Cell Distribution Width 12.1 % (11.6-14.4); White Blood Count 7.6 K/mm3 (4.8-10.8)
[2020-08-30 11:31] LABS: Partial Thromboplastin Time 28.4 SEC (23.90-30.70)
[2020-08-30 11:38] LABS: Alanine Aminotransferase 42 U/L (16-63); Alkaline Phosphatase 57 U/L (46-116); Anion Gap 7 mmol/L (8-16); Aspartate Amino Transferase 17 U/L (15-37); Bilirubin,Total 0.9 mg/dL (0.00-1.00); Blood Urea Nitrogen 16 mg/dL (7-18); Calcium 8.4 mg/dL (8.5-10.1); Carbon Dioxide 28 mmol/L (21-32); Chloride 90 mmol/L (98-108); Estimated Glomerular Filt Rate > 60; Glucose 90 mg/dL (70-99); Osmolality Calculated 261 mOsm/kg (285-295); Potassium 3.1 mmol/L (3.5-5.1); Sodium 125 mmol/L (136-145); Total Protein 6.6 g/dL (6.4-8.2)
[2020-08-30 11:40] LABS: Troponin I 4.7 ng/L (0.00-60.4)
[2020-08-30 11:40] LABS: CRP 7.3 mg/dL (0.0-0.9); Magnesium 1.6 mg/dL (1.8-2.4)
[2020-08-30 11:42] LABS: BNP 76 pg/mL (0-100)
[2020-08-30 12:15] VITALS: PULSE 60; RESP 20; O2SAT 92
[2020-08-30] MEDS: ALBUTEROL SULFATE (*SP) INHALER 4 PUFF INHALATION (12:36)
[2020-08-30] MEDS: SODIUM CHLORIDE 0.9% IV 1,000 ML 999 ML IV CONT (12:39)
[2020-08-30 12:43] VITALS: PULSE 62; RESP 20; O2SAT 93
[2020-08-30 13:23] VITALS: BP 110/48; PULSE 60; O2SAT 95
== END 2020-08-30 13:30 | disposition home or self-care (01) ==
PROVIDERS: Emergency Provider Emergency Medicine; PCP Internal Medicine
DX: U07.1 COVID-19 (principal); J12.89 Other viral pneumonia; E87.1 Hypo-osmolality and hyponatremia
CPT/HCPCS: 36415; 71045; 80053; 83735; 83880; 84484; 85025; 85610; 85730; 86140; 93005; 94640; 96360; 99283; 99284; A9270; J7030

== ENCOUNTER 2020-09-22 14:33 | Outpatient (NON) | payer BC, SELFPAY ==
[2020-09-22 17:06] LABS: Crystals Synovial Fluid None Seen (None Seen)
== END 2020-09-22 14:34 ==
PROVIDERS: PCP Internal Medicine; Visit Provider Internal Medicine
DX: M25.561 Pain in right knee (principal)
CPT/HCPCS: 87070; 87075; 87076; 87205; 88108; 89060

== ENCOUNTER 2021-01-16 11:45 | Outpatient (NON) | payer MEDICARE, SELFPAY ==
[2021-01-16 12:06] LABS: Basophils Absolute Auto 0.02 K/mm3 (0.00-0.10); Basophils Percent Auto 0.3 % (0.0-1.0); Eosinophils Absolute Auto 0.02 K/mm3 (0.02-0.50); Eosinophils Percent Auto 0.3 % (1.0-6.0); Hematocrit 37.6 % (40.0-54.0); Hemoglobin 13.4 g/dL (14.0-18.0); Immature Granulocyte Absolute 0.04 K/mm3 (0.00-0.00); Immature Granulocyte Percent A 0.7 % (0.0-0.0); Lymphocytes Absolute Auto 1.26 K/mm3 (1.10-4.50); Lymphocytes Percent Auto 20.9 % (18.0-42.0); Mean Corpuscular HGB Conc 35.6 g/dL (32.0-36.0); Mean Corpuscular Hemoglobin 34.4 pg (27.0-31.0); Mean Corpuscular Volume 96.7 fL (78.0-102.0); Mean Platelet Volume 10.2 fl (8.7-11.0); Monocytes Absolute Auto 0.62 K/mm3 (0.10-0.90); Monocytes Percent Auto 10.3 % (2.0-11.0); Neutrophils Absolute Auto 4.1 K/mm3 (1.7-7.2); Neutrophils Percent Auto 67.5 % (50.0-70.0); Platelet Count Result 153 K/mm3 (150-420); Red Blood Count 3.89 M/mm3 (4.70-6.10); Red Cell Distribution Width 12.6 % (11.6-14.4)
[2021-01-16 12:58] LABS: Alanine Aminotransferase 39 U/L (16-63); Albumin Level 3.6 g/dL (3.4-5.0); Alkaline Phosphatase 69 U/L (46-116); Anion Gap 8 mmol/L (8-16); Aspartate Amino Transferase 22 U/L (15-37); Bilirubin,Total 0.9 mg/dL (0.00-1.00); Blood Urea Nitrogen 15 mg/dL (7-18); Calcium 9.2 mg/dL (8.5-10.1); Carbon Dioxide 30 mmol/L (21-32); Chloride 99 mmol/L (98-108); Estimated Glomerular Filt Rate > 60; Glucose 124 mg/dL (70-99); Osmolality Calculated 285 mOsm/kg (285-295); Potassium 4.2 mmol/L (3.5-5.1); Sodium 137 mmol/L (136-145); Total Protein 6.1 g/dL (6.4-8.2)
== END 2021-01-16 11:46 | disposition home or self-care (01) ==
PROVIDERS: PCP Internal Medicine; Visit Provider Internal Medicine
DX: Z47.33 Aftercare following explantation of knee joint prosthesis (principal); Z79.2 Long term (current) use of antibiotics
CPT/HCPCS: 36415; 80053; 85025

== ENCOUNTER 2021-01-23 16:57 | Outpatient (NON) | payer MEDICARE, SELFPAY ==
[2021-01-23 17:49] LABS: Basophils Absolute Auto 0.03 K/mm3 (0.00-0.10); Basophils Percent Auto 0.4 % (0.0-1.0); Eosinophils Absolute Auto 0.04 K/mm3 (0.02-0.50); Eosinophils Percent Auto 0.5 % (1.0-6.0); Hematocrit 35.4 % (40.0-54.0); Hemoglobin 12.4 g/dL (14.0-18.0); Immature Granulocyte Absolute 0.04 K/mm3 (0.00-0.00); Immature Granulocyte Percent A 0.5 % (0.0-0.0); Mean Platelet Volume 9.8 fl (8.7-11.0); Monocytes Absolute Auto 0.36 K/mm3 (0.10-0.90); Monocytes Percent Auto 4.8 % (2.0-11.0); Neutrophils Absolute Auto 5.2 K/mm3 (1.7-7.2); Neutrophils Percent Auto 69.8 % (50.0-70.0); Platelet Count Result 253 K/mm3 (150-420); Red Blood Count 3.65 M/mm3 (4.70-6.10); Red Cell Distribution Width 12.3 % (11.6-14.4); White Blood Count 7.5 K/mm3 (4.8-10.8)
[2021-01-23 18:09] LABS: Alanine Aminotransferase 35 U/L (16-63); Albumin Level 3.8 g/dL (3.4-5.0); Alkaline Phosphatase 90 U/L (46-116); Anion Gap 11 mmol/L (8-16); Aspartate Amino Transferase 24 U/L (15-37); Bilirubin,Total 0.4 mg/dL (0.00-1.00); Blood Urea Nitrogen 19 mg/dL (7-18); Calcium 8.8 mg/dL (8.5-10.1); Carbon Dioxide 29 mmol/L (21-32); Chloride 97 mmol/L (98-108); Estimated Glomerular Filt Rate > 60; Glucose 128 mg/dL (70-99); Osmolality Calculated 288 mOsm/kg (285-295); Sodium 137 mmol/L (136-145); Total Protein 6.3 g/dL (6.4-8.2)
== END 2021-01-23 16:58 | disposition home or self-care (01) ==
LOC: CHSLAB 17:15
DX: Z47.33 Aftercare following explantation of knee joint prosthesis (principal); Z79.2 Long term (current) use of antibiotics
CPT/HCPCS: 36415; 80053; 85025

== ENCOUNTER 2021-01-30 12:47 | Outpatient (NON) | payer MEDICARE, SELFPAY ==
[2021-01-30 12:57] LABS: Basophils Absolute Auto 0.02 K/mm3 (0.00-0.10); Basophils Percent Auto 0.5 % (0.0-1.0); Eosinophils Absolute Auto 0.09 K/mm3 (0.02-0.50); Eosinophils Percent Auto 2.2 % (1.0-6.0); Hematocrit 43.5 % (40.0-54.0); Hemoglobin 15.4 g/dL (14.0-18.0); Immature Granulocyte Absolute 0.01 K/mm3 (0.00-0.00); Immature Granulocyte Percent A 0.2 % (0.0-0.0); Lymphocytes Absolute Auto 0.96 K/mm3 (1.10-4.50); Lymphocytes Percent Auto 23.4 % (18.0-42.0); Mean Corpuscular HGB Conc 35.4 g/dL (32.0-36.0); Mean Platelet Volume 9.7 fl (8.7-11.0); Monocytes Absolute Auto 0.17 K/mm3 (0.10-0.90); Monocytes Percent Auto 4.1 % (2.0-11.0); Neutrophils Absolute Auto 2.9 K/mm3 (1.7-7.2); Neutrophils Percent Auto 69.6 % (50.0-70.0); Platelet Count Result 173 K/mm3 (150-420); Red Blood Count 4.53 M/mm3 (4.70-6.10); Red Cell Distribution Width 12.2 % (11.6-14.4); White Blood Count 4.1 K/mm3 (4.8-10.8)
[2021-01-30 13:12] LABS: Alanine Aminotransferase 27 U/L (16-63); Alkaline Phosphatase 108 U/L (46-116); Anion Gap 10 mmol/L (8-16); Aspartate Amino Transferase 13 U/L (15-37); Bilirubin,Total 0.5 mg/dL (0.00-1.00); Blood Urea Nitrogen 13 mg/dL (7-18); Carbon Dioxide 29 mmol/L (21-32); Chloride 99 mmol/L (98-108); Estimated Glomerular Filt Rate > 60; Glucose 161 mg/dL (70-99); Osmolality Calculated 289 mOsm/kg (285-295); Sodium 138 mmol/L (136-145); Total Protein 6.5 g/dL (6.4-8.2)
== END 2021-01-30 12:48 | disposition home or self-care (01) ==
LOC: CHSLAB 12:48
PROVIDERS: Visit Provider Internal Medicine
DX: Z47.33 Aftercare following explantation of knee joint prosthesis (principal); Z79.2 Long term (current) use of antibiotics
CPT/HCPCS: 36415; 80053; 85025

== ENCOUNTER 2021-02-06 11:56 | Outpatient (NON) | payer MEDICARE, SELFPAY ==
[2021-02-06 12:07] LABS: Hemoglobin 20.2 g/dL (12.4-15.3); Mean Corpuscular HGB Conc 34.2 g/dL (32.0-36.0); Mean Corpuscular Volume 93.5 fL (78.0-102.0); Mean Platelet Volume 9.6 fl (8.7-11.0); Platelet Count Result 92 K/mm3 (150-420); Red Blood Count 6.31 M/mm3 (4.70-6.10); White Blood Count 2.2 K/mm3 (4.8-10.8)
[2021-02-06 12:35] LABS: Alanine Aminotransferase 31 U/L (16-63); Albumin Level 4.1 g/dL (3.4-5.0); Alkaline Phosphatase 108 U/L (46-116); Anion Gap 12 mmol/L (8-16); Aspartate Amino Transferase 20 U/L (15-37); Bilirubin,Total 0.5 mg/dL (0.00-1.00); Blood Urea Nitrogen 14 mg/dL (7-18); Calcium 8.9 mg/dL (8.5-10.1); Carbon Dioxide 29 mmol/L (21-32); Chloride 96 mmol/L (98-108); Estimated Glomerular Filt Rate > 60; Glucose 169 mg/dL (70-99); Osmolality Calculated 288 mOsm/kg (285-295); Sodium 137 mmol/L (136-145); Total Protein 6.8 g/dL (6.4-8.2)
[2021-02-06 12:56] LABS: Band Neutrophils Percent 1 % (0-6); Basophils Percent Manual 0 % (0-1); Eosinophils Absolute Manual 0.19 K/mm3 (0.02-0.5); Eosinophils Percent Manual 9 % (1-6); Lymphocytes Absolute Manual 0.55 K/mm3 (1.1-4.5); Lymphocytes Percent Manual 25 % (18-44); Monocytes Absolute Manual 0.11 K/mm3 (0.1-0.90); Monocytes Percent Manual 5 % (3-9); Neutrophils Absolute Manual 1.34 K/mm3 (1.3-6.7); Neutrophils Percent Manual 60 % (46-73); Total Cells Counted 100
[2021-02-06 12:57] LABS: Platelet Estimate Decreased (Adequate)
== END 2021-02-06 11:57 | disposition home or self-care (01) ==
LOC: CHSLAB 12:00
PROVIDERS: Visit Provider Internal Medicine
DX: Z47.33 Aftercare following explantation of knee joint prosthesis (principal); Z79.2 Long term (current) use of antibiotics
CPT/HCPCS: 36415; 80053; 85025

== ENCOUNTER 2021-05-08 12:55 | Outpatient (RCR) | payer MEDICARE, OTHER, SELFPAY ==
--- NOTE | 2021-05-08 14:06 | PTOPEVAL ---
Thank you for referring Tavon Marsh to [facility].? The patient is scheduled to be seen for therapy? ____x/week for ___ weeks. Please review, sign, date and return this plan of care MARTY. I agree with and certify that the following plan of care is medically necessary. Referring Physician Date Admitting Provider: Attending Provider: Familia Merida, MD Referring Provider: *PT Outpatient Evaluation Start: 05/08/21 12:56 Freq: Status: Active Protocol: Document 05/08/21 12:56 ACR (Rec: 05/08/21 14:05 ACR [id number]) Therapy Assessment Status Assessment Status Assessment Status Evaluation Outpatient Past Medical History Cardiovascular History Hx Hypercholesterolemia Yes Hx Hypertension Yes Respiratory History Hx Bronchitis Yes Hx Pneumonia Yes Gastrointestinal History Hx Appendectomy Yes Hx Hernia Yes Musculoskeletal History Hx Gout Yes HEENT History Hx Cataracts Yes Evaluation Information Problem Diagnosis R TKA Onset 04/18/21 Subjective Information Patient states that he got a R Query Text:As Reported By Patient/ TKA on 04/18/21 and had 3 PT Family visits from . Patient states that getting up, prolonged walking/standing, navigating the stairs are all difficult. He denies falls. He states that he got this knee replacement due to the original one in 2019 got infected. He states he does not ambulate with an AD, but will occasionally walk around with the cane in his hand. He is unable to go fishing, hunting, and garden because of his knees. He states his goal for therapy is to be able to walk and be able to perform his hobbies. Prior Level of Function Activity Level (Last 3 Months) Occupation retired Hand Dominance Right Activity of Daily Living Ability Independent Indoor/Home Mobility Independent Community Mobility Independent Stairs Ability Independent Functional Cognition (Planning, Shopping Independent , Taking Medications) Cooking Yes Cleaning Yes Laundry Yes
--- NOTE | 2021-05-24 09:13 | PTOPEVAL ---
Thank you for referring Tavon Marsh to [facility].? The patient is scheduled to be seen for therapy? ____x/week for ___ weeks. Please review, sign, date and return this plan of care MARTY. I agree with and certify that the following plan of care is medically necessary. Referring Physician Date Admitting Provider: Attending Provider: Familia Merida, Referring Provider: *PT Outpatient Evaluation Start: 05/08/21 12:56 Freq: Status: Active Protocol: Document 05/24/21 08:00 [facility] (Rec: 05/24/21 09:09 [facility] [id number]) Therapy Assessment Status Assessment Status Assessment Status Progress Outpatient Past Medical History Cardiovascular History Hx Hypercholesterolemia Yes Hx Hypertension Yes Respiratory History Hx Bronchitis Yes Hx Pneumonia Yes Gastrointestinal History Hx Appendectomy Yes Hx Hernia Yes Musculoskeletal History Hx Gout Yes HEENT History Hx Cataracts Yes Evaluation Information Problem Diagnosis R TKA Onset 04/18/21 Subjective Information patient reports he feels Query Text:As Reported By Patient/ alright this date. he reports Family his R knee has been a bit sore the past few days. he reports he is up on his feet all day long. Pain Assessment Timing of Pain Assessment Timing of Pain Assessment Assessment Pain Scale Pain Scale Used Numeric (1 - 10) Self Report Pain Assessment Right Knee(s) Reported Pain Level 2 Pain Score Pain Score 2: Self Report Interventions Used Interventions Used By Clinicians Elevation,Exercise,Ice Lower Extremity Range of Motion General Lower Extremity Range of Motion Gross Lower Extremity Range of Motion -5 degrees arom R knee Comments extension 116 degrees aarom R knee flexion Palpation Assessment Palpation Palpation 46cm L knee jt line girth 52cm R knee jt line girth Gait Assessment Gait Pattern Assessment Other Gait Observations patient ambulates with decreased flexion of the R knee with mild circumduction to progress the R LE. stair ambulation, patient displays circumduction to ambulate up onto the next step with the R LE. General Exercise General Exercises Exercise Description - heel prop x 10 minutes Que
--- NOTE | 2021-06-02 10:03 | PTOPEVAL ---
Thank you for referring Tavon Marsh to [facility].? The patient is scheduled to be seen for therapy? ____x/week for ___ weeks. Please review, sign, date and return this plan of care MARTY. I agree with and certify that the following plan of care is medically necessary. Referring Physician Date Admitting Provider: Attending Provider: Familia Merida, MD Referring Provider: *PT Outpatient Evaluation Start: 05/08/21 12:56 Freq: Status: Active Protocol: Document 06/02/21 08:57 ACR (Rec: 06/02/21 10:03 ACR [id number]) Therapy Assessment Status Assessment Status Assessment Status Progress Outpatient Past Medical History Cardiovascular History Hx Hypercholesterolemia Yes Hx Hypertension Yes Respiratory History Hx Bronchitis Yes Hx Pneumonia Yes Gastrointestinal History Hx Appendectomy Yes Hx Hernia Yes Musculoskeletal History Hx Gout Yes HEENT History Hx Cataracts Yes Evaluation Information Problem Diagnosis R TKA Onset 04/18/21 Subjective Information Patient reports that since Query Text:As Reported By Patient/ begining therapy he is able to Family do a lot that he needs to do, but it bothers him and he still feels a bit unsteady on uneven terrain. The patient states he still has difficulty with steps and getting out of a chair as well. Pain Assessment Pain Scale Pain Scale Used Numeric (1 - 10) Self Report Pain Assessment Right Knee(s) Reported Pain Level 0 Greatest Pain Intensity 2 Pain Score Pain Score 0: Self Report Interventions Used Interventions Used By Clinicians Activity or ADL's,Compression Pump,Exercise,Ice Lower Extremity Range of Motion Knee Range of Motion Right Knee Flexion Range of Motion - Active 116 Knee Extension Range of Motion - Active -5 Query Text: Left Knee Flexion Range of Motion - Active 126 Knee Extension Range of Motion - Active 0 Query Text: Lower Extremity Muscle Strength Testing Knee Strength Right Knee Flexion Strength 4+ Good + Knee Extension Strength 4 Good Left Knee Flexion Strength 5 Normal Knee Extension Strength 5 Normal Palpation Assessment Palpation Palpation R medial joint line: 52 cm L medial joint line: 48cm Gait Assessment Gait Assessment Additional Ambulation Comments Patient ambulates into the
--- NOTE | 2021-06-20 10:34 | PTOPEVAL ---
Thank you for referring Tavon Marsh to [facility].? The patient is scheduled to be seen for therapy? ____x/week for ___ weeks. Please review, sign, date and return this plan of care MARTY. I agree with and certify that the following plan of care is medically necessary. Referring Physician Date Admitting Provider: Attending Provider: Familia Merida, Referring Provider: *PT Outpatient Evaluation Start: 05/08/21 12:56 Freq: Status: Active Protocol: Document 06/20/21 09:00 ACR (Rec: 06/20/21 10:10 ACR [email or web address]) Therapy Assessment Status Assessment Status Assessment Status Progress Outpatient Past Medical History Cardiovascular History Hx Hypercholesterolemia Yes Hx Hypertension Yes Respiratory History Hx Bronchitis Yes Hx Pneumonia Yes Gastrointestinal History Hx Appendectomy Yes Hx Hernia Yes Musculoskeletal History Hx Gout Yes HEENT History Hx Cataracts Yes Evaluation Information Problem Diagnosis R TKA Onset 04/18/21 Subjective Information Patient states that the most Query Text:As Reported By Patient/ difficult thing for him to do Family is get up because his knee gets stiff. He states that he continues to have the pain right in the front of the knee . Patient states he feels unsure of himself at times with uneven terrain because he feels unsteady. He also has difficulty with steps as well. Pain Assessment Timing of Pain Assessment Timing of Pain Assessment Assessment Pain Scale Pain Scale Used Numeric (1 - 10) Self Report Pain Assessment Right Knee(s) Reported Pain Level 0 Greatest Pain Intensity 2 Pain Score Pain Score 0: Self Report Interventions Used Interventions Used By Clinicians Activity or ADL's,Compression Pump,Exercise Lower Extremity Range of Motion Knee Range of Motion Right Knee Flexion Range of Motion - Active 116 Knee Extension Range of Motion - Active -4 Query Text: Lower Extremity Muscle Strength Testing Knee Strength Right Knee Flexion Strength 5 Normal Knee Extension Strength 4+ Good + Left Knee Flexion Strength 5 Normal Knee Extension Strength 5 Normal Gait Assessment Gait Assessment Additional Ambulation Comments Patient ambulates with R hip abduction and circumduction
--- NOTE | 2021-07-11 09:58 | PTOPEVAL ---
Thank you for referring Tavon Marsh to [facility].? The patient is scheduled to be seen for therapy? ____x/week for ___ weeks. Please review, sign, date and return this plan of care MARTY. I agree with and certify that the following plan of care is medically necessary. Referring Physician Date Admitting Provider: Attending Provider: Familia Merida, Referring Provider: *PT Outpatient Evaluation Start: 05/08/21 12:56 Freq: Status: Active Protocol: Document 07/11/21 09:02 ACR (Rec: 07/11/21 09:58 ACR [email or web address]) Therapy Assessment Status Assessment Status Assessment Status Discharge Outpatient Past Medical History Cardiovascular History Hx Hypercholesterolemia Yes Hx Hypertension Yes Respiratory History Hx Bronchitis Yes Hx Pneumonia Yes Gastrointestinal History Hx Appendectomy Yes Hx Hernia Yes Musculoskeletal History Hx Gout Yes HEENT History Hx Cataracts Yes Evaluation Information Problem Diagnosis R TKA Onset 04/18/21 Subjective Information Patient reports walking and Query Text:As Reported By Patient/ stairs are a lot easier since Family beginning therapy. He reports minmal pain and is able to do everything he needs to do regarding his knee. Pain Assessment Timing of Pain Assessment Timing of Pain Assessment Assessment Pain Scale Pain Scale Used Numeric (1 - 10) Self Report Pain Assessment Right Knee(s) Reported Pain Level 0 Greatest Pain Intensity 2 Pain Score Pain Score 0: Self Report Additional Pain Score Comments Pain only when getting out of a chair after sitting for a period of time due to stiffness. Interventions Used Interventions Used By Clinicians Activity or ADL's,Exercise Lower Extremity Range of Motion Knee Range of Motion Right Knee Flexion Range of Motion - Active 120 Knee Extension Range of Motion - Active 0 Query Text: Lower Extremity Muscle Strength Testing Knee Strength Right Knee Flexion Strength 5 Normal Knee Extension Strength 5 Normal Left Knee Flexion Strength 5 Normal Knee Extension Strength 5 Normal General Exercise General Exercises Exercise Description - heel and toe raises on foam Query Text:Record Sets, Reps, x 30 Resistance, and Position - standing hip abduction on foam x 30 B - stnading hip extension on
== END 2021-07-11 10:43 | disposition home or self-care (01) ==
LOC: CHSPT 12:55
PROVIDERS: PCP Internal Medicine; Visit Provider Orthopaedic Surgery Adult Reconstructive Orthopaedic Surgery
DX: M25.561 Pain in right knee (principal); G89.29 Other chronic pain
CPT/HCPCS: 97016; 97110; 97140; 97161; 97530

== ENCOUNTER 2021-09-07 14:56 | Outpatient (CLI) | payer MEDICARE, SELFPAY ==
[2021-09-07 16:59] LABS: Influenza A QL RT-PCR Negative (Negative); Influenza B QL RT-PCR Negative (Negative); SARS-CoV-2 RNA PCR Positive (Negative)
== END 2021-09-07 14:57 | disposition home or self-care (01) ==
LOC: CHSLAB 15:00
PROVIDERS: PCP Internal Medicine; Visit Provider Internal Medicine
DX: U07.1 COVID-19 (principal); J06.9 Acute upper respiratory infection, unspecified
CPT/HCPCS: 87502; C9803; U0003; U0005

== ENCOUNTER 2022-07-26 09:57 | Outpatient (CLI) | payer MEDICARE, SELFPAY ==
--- NOTE | ~2022-07-26 | CT_ITS ---
EXAMINATION: CT sinus wo con DATE: 07/26/2022 10:19 INDICATION: Congestion, pressure. Chronic sinusitis, immune deficiency TECHNIQUE: Computed tomography (CT) of the paranasal sinuses was performed without contrast. Iterativ e reconstruction technique was employed. Exam dose: 284.29 mGy-cm total exam DLP. COMPARISON: 07/28/2020 CT brain FINDINGS: There is mild leftward bowing of nasal septum. Moderate soft tissue swelling of the nasal turbinates. There are bilateral nasal antral windows and partial resection of the medial kim of both maxillary sinuses and the uncinate processes. There is prominent soft tissue thickening of both frontoethmoid area is some prominent patchy opacifi cation of the ethmoid air cells bilaterally. There is severe bilateral maxillary sinus mucoperiosteal thickening. There is mild mucoperiosteal thi ckening of the right sphenoid sinus and minimal mucoperiosteal thickening of the left sphenoid sinus. Lower right mastoid air cell opacification. The left mastoid air cells are well-aerated. IMPRESSION: Bilateral nasal antral windows Severe mucoperiosteal thickening of both x-ray sinuses Prominent patchy opacification of the ethmoid air cells and prominent bilateral frontal ethmoid soft tissue thickening Moderate right and minimal left sphenoid sinus mucoperiosteal thickening Opacification of lower right mastoid air cells Reviewed, dictated and finalized at Location A. Reviewed, dictated and finalized at location B. CH OFFICE MANAGER
== END 2022-07-26 09:58 | disposition home or self-care (01) ==
LOC: CHSIMG 09:59
PROVIDERS: PCP Internal Medicine; Visit Provider Internal Medicine
DX: J32.9 Chronic sinusitis, unspecified (principal); D84.9 Immunodeficiency, unspecified; I10 Essential (primary) hypertension
CPT/HCPCS: 70486

== ENCOUNTER 2022-09-13 11:02 | Outpatient (CLI) | payer MEDICARE, SELFPAY ==
--- NOTE | ~2022-09-13 | XR_ITS ---
Left foot Technique: AP, oblique, and lateral views were obtained. Clinical History: Second toe swelling and pain Findings: No acute fracture or dislocation is seen. Probable pes cavus deformity. Joint spaces are pr eserved without erosive or degenerative change. Soft tissue swelling of the second digit noted. Impression: No acute fracture or dislocation seen. Soft tissue swelling second digit, nonspecific. Suspected pes cavus deformity. Reviewed, dictated and finalized at location M. CLEANING MACHINE OPERATOR Impression: No acute fracture or dislocation seen. Soft tissue swelling second digit, nonspecific. Suspected pes cavus deformity.
== END 2022-09-13 11:03 | disposition home or self-care (01) ==
PROVIDERS: PCP Internal Medicine; Visit Provider Internal Medicine
DX: M79.89 Other specified soft tissue disorders (principal)
CPT/HCPCS: 73630

== ENCOUNTER 2022-11-02 13:57 | Outpatient (CLI) | payer MEDICARE, SELFPAY ==
[2022-11-05 15:28] LABS: Immunoglobulin G, Serum 608 mg/dL (600-1540); Immunoglobulin G1 431 mg/dL (382-929); Immunoglobulin G2 62 mg/dL (241-700); Immunoglobulin G3 19 mg/dL (22-178); Immunoglobulin G4 7.6 mg/dL (4.0-86.0)
== END 2022-11-02 13:58 | disposition home or self-care (01) ==
LOC: CHSLAB 13:59
PROVIDERS: PCP Internal Medicine; Visit Provider Internal Medicine Hematology & Oncology
DX: D80.1 Nonfamilial hypogammaglobulinemia (principal)
CPT/HCPCS: 36415; 82784; 82787

== ENCOUNTER 2023-04-02 15:26 | Outpatient (CLI) | payer MEDICARE, SELFPAY ==
--- NOTE | ~2023-04-02 | XR_ITS ---
Right foot Technique: AP, oblique, and lateral views were obtained. Clinical History: First digit ulcer Findings: No acute fracture or dislocation is seen. Osseous alignment is anatomic. Joint spaces are p reserved without erosive or degenerative change. Soft tissues are unremarkable. Impression: No significant abnormality seen. Reviewed, dictated and finalized at [facility]. Impression: No significant abnormality seen.
== END 2023-04-02 15:27 | disposition home or self-care (01) ==
LOC: CHSIMG 15:29
PROVIDERS: PCP Internal Medicine; Visit Provider Internal Medicine
DX: L97.519 Non-pressure chronic ulcer of other part of right foot with unspecified severity (principal)
CPT/HCPCS: 73630

== ENCOUNTER 2023-05-18 10:42 | Outpatient (CLI) | payer MEDICARE, SELFPAY ==
--- NOTE | ~2023-05-18 | MR_ITS ---
MRI of the right foot CLINICAL HISTORY: Chronic ulcer TECHNIQUE: Axial proton-density and proton-density fat-sat images, coronal T1-weighted and proton-den sity fat-sat images, and sagittal T1-weighted and STIR images were performed. Following intravenous a dministration of 20 cc MultiHance gadolinium, T1-weighted fat-sat imaging was performed in the axial, coronal, and sagittal planes. FINDINGS: Bone marrow signals are unremarkable. No fracture or bone marrow edema seen. No evidence of osteomyelitis. Visualized joint spaces are relatively well-preserved. No joint effusion identified. There is soft tissue ulcer at the plantar aspect of the first MTP joint region. There is soft tissue edema and enhancement at the plantar aspect of the first MTP joint region, compatible soft tissue inf ection, without distinct abscess. No intermetatarsal bursitis or Christy's neuroma identified. Flexor and extensor tendons are intact. IMPRESSION: Soft tissue ulcer to plantar aspect of the first MTP joint region, with surrounding soft tissue edema and infection in this region. No abscess or osteitis. Reviewed, dictated and finalized at location . IMPRESSION: Soft tissue ulcer to plantar aspect of the first MTP joint region, with surroun ding soft tissue edema and infection in this region. No abscess or osteitis.
[2023-05-18 11:04] LABS: Estimated Glomerular Filt Rate > 60
== END 2023-05-18 10:43 | disposition home or self-care (01) ==
LOC: CHSIMG 10:43
PROVIDERS: PCP Podiatrist Foot & Ankle Surgery; Visit Provider Podiatrist Foot & Ankle Surgery
DX: L97.512 Non-pressure chronic ulcer of other part of right foot with fat layer exposed (principal)
CPT/HCPCS: 73720; A9577

== ENCOUNTER 2023-08-27 14:34 | Outpatient (CLI) | payer MEDICARE, SELFPAY ==
[2023-08-27 14:51] LABS: Basophils Percent Auto 0.4 % (0.2-1.2); Eosinophils Absolute Auto 0.1 K/mm3 (0-0.3); Eosinophils Percent Auto 1.8 % (0-4.4); Hematocrit 41.4 % (42.0-52.0); Hemoglobin 14.6 g/dL (14.0-18.0); Immature Granulocyte Absolute 0.13 K/mm3 (0.00-0.031); Immature Granulocyte Percent A 1.8 % (0-0.5); Lymphocytes Absolute Auto 2.34 K/mm3 (0.9-3.2); Lymphocytes Percent Auto 32.7 % (18.3-44.2); Mean Corpuscular HGB Conc 35.3 g/dl (32-36); Mean Corpuscular Hemoglobin 33.9 pg (26-34); Mean Corpuscular Volume 96.1 fl (80-100); Mean Platelet Volume 9.2 fl (7.4-10.4); Monocytes Absolute Auto 0.6 K/mm3 (0.1-0.6); Monocytes Percent Auto 7.8 % (2.6-8.5); Neutrophils Percent Auto 55.5 % (45.5-73.1); Platelet Count Result 290 k/mm3 (150-375); Red Blood Count 4.31 M/mm3 (4.6-6.20); Red Cell Distribution Width 12.4 % (11.5-14.5); White Blood Count 7.2 K/mm3 (4.5-10.0)
[2023-08-27 16:40] LABS: Immunoglobulin A 49 mg/dL (70-400); Immunoglobulin G 808 mg/dL (700-1600)
[2023-08-27 16:46] LABS: Alanine Aminotransferase 58 U/L (6-50); Albumin Level 4.3 g/dL (3.5-5.1); Alkaline Phosphatase 75 U/L (38-126); Anion Gap 9 mmol/L (8-16); Aspartate Amino Transferase 42 U/L (17-59); Bilirubin,Total 0.6 mg/dL (0.2-1.3); Blood Urea Nitrogen 12 mg/dL (9-20); Calcium 9.7 mg/dL (8.4-10.2); Carbon Dioxide 27 mmol/L (22-30); Chloride 99 mmol/L (98-107); Estimated Glomerular Filt Rate > 60; Glucose 79 mg/dL (65-110); Potassium 4.2 mmol/L (3.4-5.0); Sodium 135 mmol/L (137-145)
[2023-08-27 17:41] LABS: Immunoglobulin M < 25 mg/dL (40-230)
[2023-08-30 10:10] LABS: Albumin 3.8 g/dL (3.8-4.8); Alpha 1 Globulin 0.4 g/dL (0.2-0.3); Alpha 2 Globulin 0.8 g/dL (0.5-0.9); Beta 1 Globulin 0.4 g/dL (0.4-0.6); Gamma Globulin 0.7 g/dL (0.8-1.7); Protein, Total 6.4 g/dL (6.1-8.1)
[2023-08-30 12:54] LABS: Kappa\\Lambda Light Chains 1.22 (0.26-1.65)
== END 2023-08-27 14:35 | disposition home or self-care (01) ==
LOC: ANHLAB 14:36
PROVIDERS: PCP Podiatrist Foot & Ankle Surgery; Visit Provider Internal Medicine Hematology & Oncology
DX: D72.9 Disorder of white blood cells, unspecified (principal)
CPT/HCPCS: 36415; 80053; 82784; 83883; 84155; 84165; 85025; 88184; 88185

== ENCOUNTER 2023-10-03 08:30 | Outpatient (CLI) | payer MEDICARE, SELFPAY ==
[2023-10-03 09:04] LABS: Basophils Percent Auto 0.4 % (0.2-1.2); Eosinophils Absolute Auto 0.1 K/mm3 (0-0.3); Eosinophils Percent Auto 2.1 % (0-4.4); Hematocrit 42.4 % (42.0-52.0); Hemoglobin 15.1 g/dL (14.0-18.0); Immature Granulocyte Absolute 0.01 K/mm3 (0.00-0.031); Immature Granulocyte Percent A 0.2 % (0-0.5); Lymphocytes Absolute Auto 1.71 K/mm3 (0.9-3.2); Mean Corpuscular HGB Conc 35.6 g/dl (32-36); Mean Corpuscular Volume 95.5 fl (80-100); Mean Platelet Volume 10.1 fl (7.4-10.4); Monocytes Absolute Auto 0.3 K/mm3 (0.1-0.6); Monocytes Percent Auto 5.1 % (2.6-8.5); Neutrophils Absolute Auto 3.6 K/mm3 (1.3-6.7); Neutrophils Percent Auto 62.2 % (45.5-73.1); Platelet Count Result 133 k/mm3 (150-375); Red Blood Count 4.44 M/mm3 (4.6-6.20); Red Cell Distribution Width 12.8 % (11.5-14.5); White Blood Count 5.7 K/mm3 (4.5-10.0)
[2023-10-03 09:30] LABS: Alanine Aminotransferase 35 U/L (6-50); Albumin Level 4.3 g/dL (3.5-5.1); Alkaline Phosphatase 58 U/L (38-126); Anion Gap 7 mmol/L (8-16); Aspartate Amino Transferase 43 U/L (17-59); Bilirubin,Total 0.8 mg/dL (0.2-1.3); Blood Urea Nitrogen 14 mg/dL (9-20); Calcium 9.4 mg/dL (8.4-10.2); Carbon Dioxide 28 mmol/L (22-30); Chloride 101 mmol/L (98-107); Estimated Glomerular Filt Rate > 60; Glucose 134 mg/dL (65-110); Lactate Dehydrogenase 126 U/L (120-246); Potassium 4.3 mmol/L (3.4-5.0); Sodium 136 mmol/L (137-145)
[2023-10-03 09:38] LABS: Immunoglobulin G 667 mg/dL (700-1600)
[2023-10-03 09:46] LABS: Immunoglobulin A < 40 mg/dL (70-400); Immunoglobulin M < 25 mg/dL (40-230)
== END 2023-10-03 08:31 | disposition home or self-care (01) ==
PROVIDERS: PCP Podiatrist Foot & Ankle Surgery; Visit Provider Internal Medicine Hematology & Oncology
DX: D72.9 Disorder of white blood cells, unspecified (principal); D47.9 Neoplasm of uncertain behavior of lymphoid, hematopoietic and related tissue, unspecified
CPT/HCPCS: 36415; 80053; 82784; 83615; 85025; 88237; 88271; 88275; 88365

== ENCOUNTER 2024-02-12 08:52 | Outpatient (CLI) | payer MEDICARE, SELFPAY ==
[2024-02-12 09:11] LABS: Basophils Percent Auto 0.7 % (0.2-1.2); Eosinophils Absolute Auto 0.2 K/mm3 (0-0.3); Eosinophils Percent Auto 2.7 % (0-4.4); Hematocrit 42.1 % (42.0-52.0); Hemoglobin 15.3 g/dL (14.0-18.0); Immature Granulocyte Absolute 0.02 K/mm3 (0.00-0.031); Immature Granulocyte Percent A 0.3 % (0-0.5); Lymphocytes Absolute Auto 2.07 K/mm3 (0.9-3.2); Lymphocytes Percent Auto 35.3 % (18.3-44.2); Mean Corpuscular HGB Conc 36.3 g/dl (32-36); Mean Corpuscular Hemoglobin 35.1 pg (26-34); Mean Corpuscular Volume 96.6 fl (80-100); Mean Platelet Volume 9.8 fl (7.4-10.4); Monocytes Absolute Auto 0.4 K/mm3 (0.1-0.6); Monocytes Percent Auto 7.3 % (2.6-8.5); Neutrophils Absolute Auto 3.2 K/mm3 (1.3-6.7); Neutrophils Percent Auto 53.7 % (45.5-73.1); Platelet Count Result 118 k/mm3 (150-375); Red Blood Count 4.36 M/mm3 (4.6-6.20); Red Cell Distribution Width 12.1 % (11.5-14.5); White Blood Count 5.9 K/mm3 (4.5-10.0)
[2024-02-12 10:15] LABS: Immunoglobulin G 519 mg/dL (700-1600)
[2024-02-12 10:18] LABS: Immunoglobulin A < 40 mg/dL (70-400); Immunoglobulin M < 25 mg/dL (40-230)
[2024-02-14 01:43] LABS: Protein, Total 6.2 g/dL (6.1-8.1)
[2024-02-14 12:19] LABS: Kappa\\Lambda Light Chains 1.46 (0.26-1.65); Lambda Light Chain 6.1 mg/L (5.7-26.3)
[2024-02-14 12:43] LABS: Albumin 4.2 g/dL (3.8-4.8); Alpha 1 Globulin 0.3 g/dL (0.2-0.3); Alpha 2 Globulin 0.6 g/dL (0.5-0.9); Beta 1 Globulin 0.4 g/dL (0.4-0.6); Gamma Globulin 0.5 g/dL (0.8-1.7)
== END 2024-02-12 08:53 | disposition home or self-care (01) ==
LOC: ANHLAB 08:54
PROVIDERS: PCP Internal Medicine; Visit Provider Internal Medicine Hematology & Oncology
DX: D72.9 Disorder of white blood cells, unspecified (principal)
CPT/HCPCS: 36415; 82784; 83883; 84155; 84165; 85025

== ENCOUNTER 2024-08-12 10:50 | Outpatient (CLI) | payer MEDICARE, SELFPAY ==
[2024-08-12 11:24] LABS: Basophils Percent Auto 0.3 % (0.2-1.2); Eosinophils Absolute Auto 0.4 K/mm3 (0-0.3); Hematocrit 41.6 % (42.0-52.0); Hemoglobin 14.7 g/dL (14.0-18.0); Immature Granulocyte Absolute 0.01 K/mm3 (0.00-0.031); Immature Granulocyte Percent A 0.2 % (0-0.5); Lymphocytes Absolute Auto 2.34 K/mm3 (0.9-3.2); Lymphocytes Percent Auto 40.4 % (18.3-44.2); Mean Corpuscular HGB Conc 35.3 g/dl (32-36); Mean Corpuscular Hemoglobin 33.9 pg (26-34); Mean Corpuscular Volume 95.9 fl (80-100); Monocytes Absolute Auto 0.5 K/mm3 (0.1-0.6); Monocytes Percent Auto 9.3 % (2.6-8.5); Neutrophils Absolute Auto 2.5 K/mm3 (1.3-6.7); Neutrophils Percent Auto 43.8 % (45.5-73.1); Platelet Count Result 134 k/mm3 (150-375); Red Blood Count 4.34 M/mm3 (4.6-6.20); White Blood Count 5.8 K/mm3 (4.5-10.0)
[2024-08-12 20:26] LABS: Immunoglobulin G 557 mg/dL (700-1600)
[2024-08-12 20:54] LABS: Alanine Aminotransferase 36 U/L (6-50); Albumin Level 4.4 g/dL (3.5-5.1); Alkaline Phosphatase 66 U/L (38-126); Anion Gap 5 mmol/L (4-12); Aspartate Amino Transferase 41 U/L (17-59); Bilirubin,Total 0.6 mg/dL (0.2-1.3); Blood Urea Nitrogen 18 mg/dL (9-20); Calcium 9.2 mg/dL (8.4-10.2); Carbon Dioxide 29 mmol/L (22-30); Chloride 101 mmol/L (98-107); Estimated Glomerular Filt Rate > 60; Glucose 117 mg/dL (65-110); Potassium 4.2 mmol/L (3.4-5.0); Sodium 135 mmol/L (137-145)
[2024-08-12 21:26] LABS: Immunoglobulin A < 40 mg/dL (70-400); Immunoglobulin M < 25 mg/dL (40-230)
[2024-08-14 04:59] LABS: Protein, Total 6.5 g/dL (6.1-8.1)
[2024-08-14 14:38] LABS: Albumin 4.4 g/dL (3.8-4.8); Alpha 1 Globulin 0.3 g/dL (0.2-0.3); Alpha 2 Globulin 0.6 g/dL (0.5-0.9); Beta 1 Globulin 0.5 g/dL (0.4-0.6); Gamma Globulin 0.5 g/dL (0.8-1.7); Kappa\\Lambda Light Chains 1.26 (0.26-1.65); Lambda Light Chain 9.5 mg/L (5.7-26.3)
== END 2024-08-12 10:51 | disposition home or self-care (01) ==
LOC: ANHLAB 10:55
PROVIDERS: PCP Internal Medicine; Visit Provider Internal Medicine Hematology & Oncology
DX: D72.9 Disorder of white blood cells, unspecified (principal)
CPT/HCPCS: 36415; 80053; 82784; 83883; 84155; 84165; 85025

== ENCOUNTER 2024-12-09 09:22 | Outpatient (CLI) | payer MEDICARE, SELFPAY ==
[2024-12-09 09:53] LABS: Basophils Percent Auto 0.3 % (0.2-1.2); Eosinophils Absolute Auto 0.2 K/mm3 (0-0.3); Eosinophils Percent Auto 2.6 % (0-4.4); Hematocrit 42.6 % (42.0-52.0); Hemoglobin 15.1 g/dL (14.0-18.0); Immature Granulocyte Absolute 0.02 K/mm3 (0.00-0.031); Immature Granulocyte Percent A 0.3 % (0-0.5); Lymphocytes Absolute Auto 2.31 K/mm3 (0.9-3.2); Mean Corpuscular HGB Conc 35.4 g/dl (32-36); Mean Corpuscular Hemoglobin 33.7 pg (26-34); Mean Corpuscular Volume 95.1 fl (80-100); Mean Platelet Volume 9.9 fl (7.4-10.4); Monocytes Absolute Auto 0.6 K/mm3 (0.1-0.6); Neutrophils Absolute Auto 4.5 K/mm3 (1.3-6.7); Neutrophils Percent Auto 58.8 % (45.5-73.1); Platelet Count Result 128 k/mm3 (150-375); Red Blood Count 4.48 M/mm3 (4.6-6.20); Red Cell Distribution Width 13.1 % (11.5-14.5); White Blood Count 7.7 K/mm3 (4.5-10.0)
--- OUTSIDE RECORDS SUMMARY | 2024-12-09 10:09 | XMS_ITS | Referral Summary ---
Author Organization [facility] Address [address] [place] [address] Care Team Providers Care Dark Room Attendant Name Role Phone Erich Castillo MD Primary Care Provider [phone] Allergies No known active allergies Medications allopurinol (ZYLOPRIM) 300 mg tabletIndicatio ns:prevention of acute gout attack Take 1 tablet (300 mg total) by mouth general ophthalmologist before breakfast 8 Active PARoxetine (PAXIL) 20 mg tabletIndicatio ns:Generalized Anxiety Disorder Take 1 tablet (20 mg total) by mouth every morning 8 Active pravastatin (PRAVACHOL) 40 mg tabletIndicatio ns:hyperlipidem ia Take 1 tablet (40 mg total) by mouth nightly 8 Active carvediloL (COREG) 25 mg tabletIndicatio ns:hypertension Take 1 tablet (25 mg total) by mouth 2 (two) times a day with meals 0 Active furosemide (LASIX) 40 mg tabletIndicatio ns:hypertension Take 1 tablet (40 mg total) by mouth general ophthalmologist before breakfast 0 Active potassium chloride ER 20 mEq CR tabletIndicatio ns:prevention Take 1 tablet (20 mEq total) by mouth general ophthalmologist before breakfast 0 Active montelukast (SINGULAIR) 10 mg tabletIndicatio ns:Maintenance Therapy for Asthma Take 1 tablet (10 mg total) by mouth nightly 0 Active spironolactone (ALDACTONE) 25 mg tabletIndicatio ns:hypertension Take 1 tablet (25 mg total) by mouth general ophthalmologist before breakfast 1 Active ergocalciferol (VITAMIN D) 50,000 unit capsuleIndicati ons:Vitamin D Deficiency TAKE 1 CAP 2 X A WEEK FOR 8 WEEKS THEN FOLLOW UP WITH YOUR PCP. 16 capsule 3 Active oxyCODONE (ROXICODONE) 5 mg immediate release tabletIndicatio ns:Pain Take 1 tablet (5 mg total) by mouth every 4 (four) hours as needed for pain (breaththrough pain) 30 tablet 3 Active traMADoL (ULTRAM) 50 mg tablet Take 1 tablet (50 mg total) by mouth every 8 (eight) hours as needed for pain (1st line for pain) 42 tablet 3 Active senna-docusate (PERICOLACE) 8.6-50 mgIndications:c onstipation Take 2 tablets by mouth 2 (two) times a day 80 tablet 3 Active meloxicam (MOBIC) 7.5 mg tabletIndicatio ns:Pain Take 1 tablet (7.5 mg total) by mouth daily 30 tablet 3 Active aspirin 81 mg enteric coated tabletIndicatio ns:Deep Vein Thrombosis Prevention Take 1 tablet (81 mg total) by mouth 2 (two) times a day 60 tablet 3 Active acetaminophen 500 mg capsuleIndicati ons:Pain Take 2 capsules (1,000 mg total) by mouth every 8 (eight) hours 90 tablet 3 Active Active Problems Problem Noted Date Diagnosed Date Osteoarthritis of right hip, unspecified osteoarthritis type 02/28/2023 Gout 02/20/2023 Primary osteoarthritis of right hip 01/03/2023 Infection 04/05/2021 Overview (04/05/2021): Added automatically from request for surgery [id number] 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 Cx this admission NG, however prior aspiration + C.acnes. - picc can be pulled at completion of therapy. - Will repeat labs today as pt's last ANC was 0.9 (per pharmacy, no scanned results at time of this note). If ANC remains low will discuss switching abx for last week of therapy. - Discussed with patient the rational for treatment, culture results, risk of recurrent infection, signs/symptoms of recurrent infection, and to contact ID clinic with any questions or concerns. - Ceftriaxone: Monitoring weekly CBC and CMP for possibility of rash/eosinophilia and pseudocholelithiasis (gallbladder sludging) or hepatitis. Rarely, ceftriaxone can cause drug fever, hepatitis, neutropenia, thrombocytopenia, hemolytic anemia, cholecystitis, or interstitial nephritis. Assessment & Plan (01/12/2021 2:02 PM CDT): 65 y.o. male w/PMH of HTN, ROMERO, R-TKA (May 2019 @[facility]) c/b PJI; admitted I&D and explant. - R-knee aspiration (09/29/20) with (+) synovial fluid cx: C.acnes. - X-ray (11/18): arthroplasty in near-anatomic alignment. - s/p R-knee explant + spacer + multiple bone biopsies on 01/10/21. --> synovial fluid looked extremely turbid, but not sigifredo pus. - OR cultures (01/10) NGTD. - PICC placed 01/12/21. Recommendations - discontinue cefazolin and switch to Ceftriaxone 2g IV q24h - continue vancomycin - please get baseline LFTs and CRP with next blood draw - if cultures remain no growth by tomorrow, ok to discontinue vancomycin - aim to treat C.acnes with Ceftriaxone for 6 weeks - Thank-you for the opportunity to participate in the care of this patient. Infectious Diseases will continue to follow with you. Please contact the Attending at the phone numbers in care team with any questions or concerns. After hours, please contact the ID fellow search engine optimization specialist. History of colon polyps 05/10/2020 Overview (05/10/2020): Added automatically from request for surgery [id number] History of total knee arthroplasty, right 2018 Primary osteoarthritis of right knee 05/12/2019 Overview (05/12/2019): Added automatically from request for surgery [id number] Obesity with body mass index 30 or greater 05/20 Nonalcoholic steatohepatitis (ROMERO) 05/21/2013 Abnormal finding on imaging 11/08/2011 Abnormal liver function tests 11/08/2011 Former smoker 11/08/2011 Immunizations Immunization Administration Dates Next Due Influenza, Quadrivalent, Spl it, Preservative Free, Intramuscular 06/03/2018,07/22/2017 Influenza, Trivalent, IM (MDV) 07/03/2012 Influenza, Unspecified 08/08/2016,06/19/2015 Pneumococcal Polysaccharide PPV23 08/08/2016 Tdap 07/03/2012 ZOSTER LIVE 08/08/2016 ZOSTER Recombinant 02/12/2019,11/20/2018 Social History Tobacco Use Types Packs/Day Years Used Date Smoking Tobacco: Never Smokeless Tobacco: Never Alcohol Use Standard Drinks/Week Comments Yes 0 (1 standard drink = 0.6 oz pur e alcohol) occasional AUDIT-C Answer Date Recorded Q1: How often do you have a drink containing alc ohol? 2-3 times a week 02/28/2023 Q2: How many drinks containi ng alcohol do you have on a typical day when you are drinking? 1 or 2 02/28/2023 Frequency of Binge Drinking Not on file 02/08 PHQ-2 Answer Date Recorded PHQ-2 Score 0 06/01/2019 Personal Safety Answer Date Recorded Have you ever been in or are you currently in a harmful physical or emotional relationship or is someone making you feel afraid or unsafe? Denies 02/28/2023 Sex and Gender Information Value Date Recorded Sex Assigned at Not on file Legal Sex Male 12:41 AM WAITER/[employer] Gender Identity Not on file Sexual Orientation Not on file Last Filed Vital Signs Vital Sign Reading Time Taken Comments Blood Pressure 151/63 03/01/2023 7:59 AM CDT Pulse 64 03/01/2023 7:59 AM CDT Temperature 36.4 C (97.5 F) 03/01/2023 7:59 AM CDT Respiratory Rate 16 03/01/2023 7:59 AM CDT Oxygen Saturation 98% 03/01/2023 7:59 AM CDT Inhaled Oxygen Concentration - - Weight 129.4 kg (285 lb 3.2 oz) 02/28/2023 7:20 AM CDT Height 180.3 cm (5' 11 ) 02/28/2023 7:20 AM CDT Body Mass Index 39.78 02/28/2023 7:20 AM CDT Plan of Treatment Not on file Medical Devices Implanted Type Area Crucible Furnace Tender Device Identifier Shelf Expiration Date Model / Serial / Lot Depuy Orthopaedics Inc [id number] Revision Cement Constrain Knee Right 7 Component Femoral Attune - Sna - [id number] Implanted:Qty: 1 on 04/18/2021 by Familia Merida MD at [facility] Other - see comments Right: Knee Depuy Orthopa[employer] Inc [id number] 09/08/2030 [id number] / NA / [id number] Description:Implant times ap proximate Depuy [employer] [id number] Attune Revision Full Coated Knee 40 Mm Sleeve Femoral Porocoat Sterile Latex Free - Sna - [id number] Implanted:Qty: 1 on 04/18/2021 by Familia Merida MD at [facility] Other - see comments Right: Knee Depuy Orthopa[employer] [id number] 09/08/2029 [id number] / NA / [id number] Description:Implant times ap proximate Depuy Orthopa[employer] Inc [id number] Attune H4 Mm Revision Cement Knee Posterior 7 Augment Femoral Sterile Latex Free - Sna - [id number] Implanted:Qty: 1 on 04/18/2021 by Familia Merida MD at [facility] Other - see comments Right: Knee Depuy [employer] [id number] 09/08/2030 [id number] / NA / [id number] Description:Implant times ap proximate Depuy [employer]opa[employer] Inc [id number] Attune H4 Mm Revision Cement Knee Distal 7 Augment Femoral Sterile Latex Free - Sna - [id number] Implanted:Qty: 1 on 04/18/2021 by Familia Merida MD at [facility] Other - see comments Right: Knee [employer] [id number] 12/07/2030 [id number] / NA / [id number] Description:Implant times ap proximate Depuy [employer] [id number] Attune H4 Mm Revision Cement Knee Distal 7 Augment Femoral Sterile Latex Free - Sna - [id number] Implanted:Qty: 1 on 04/18/2021 by Familia Merida MD at [facility] Other - see comments Right: Knee [employer] [id number] 12/07/2030 [id number] / NA / [id number] Description:Implant times ap proximate Depuy Orthopa[employer] [id number] Attune 18mm 60mm Revision Press Fit Knee Stem Femoral Sterile Latex Free - Sna - [id number] Implanted:Qty: 1 on 04/18/2021 by Familia Merida MD at [facility] Other - see comments Right: Knee [employer] [id number] 12/07/2030 [id number] / NA / [id number] Description:Implant times ap proximate Depuy [employer] Spotzer [id number] Attune Revision Cement Rotate Platform Knee 8 Baseplate Tibial - Sna - [id number] Implanted:Qty: 1 on 04/18/2021 by Familia Merida MD at [facility] Other - see comments Right: Knee [employer] [id number] 12/07/2030 [id number] / NA / [id number] Description:Implant times ap proximate Depuy [employer] [id number] Attune L53 Mm Revision Full Coated Knee Sleeve Tibial Porocoat Sterile Latex Free - Sna - [id number] Implanted:Qty: 1 on 04/18/2021 by Familia Merida MD at [facility] Other - see comments Right: Knee [employer]uy [employer] [id number] 03/08/2031 [id number] / NA / [id number] Description:Implant times ap proximate Depuy Orthopa[employer] Inc [id number] Attune 18mm 60mm Revision Press Fit Knee Stem Femoral Sterile Latex Free - Sna - [id number] Implanted:Qty: 1 on 04/18/2021 by Familia Merida MD at [facility] Other - see comments Right: Knee [employer] [id number] 12/07/2030 [id number] / NA / [id number] Description:Implant times ap proximate Qyuki [id number] Attune 10mm Revision Constrain Rotate Platform Knee 7 Insert - Sna - [id number] Implanted:Qty: 1 on 04/18/2021 by Familia Merida MD at [facility] Other - see comments Right: Knee [employer] [id number] 10/09/2024 [id number] / NA / [id number] Description:Implant times ap proximate [employer] Rskfmd Remedy Stem Knee Medium Component Femoral - [id number] Implanted:Qty: 1 on 01/10/2021 by Familia Merida MD at [facility] Right: Knee [employer] [id number] 03/08/2024 RSKFMD / / [id number] Description:All implant time s are approximate. Biocomposites 620-020 Stimulan Rapid Cure Kit Paste Sewing Machine Assembler 20cc 50cc Bone Void - [id number] Implanted:Qty: 1 on 01/10/2021 by Familia Merida MD at [facility] Right: Knee [employer] [id number] 08/08/2023 620-020 / / [id number] Description:All implant time s are approximate. Antibiotic mixture: Vancomycin 2000 mg powder and Tobramycin 480 mg (80 mg/2 ml) [employer] [id number] Remedy 175mm Stem Extension Knee Component Femoral - [id number] Implanted:Qty: 1 on 01/10/2021 by Familia Merida MD at [facility] Right: Knee [employer] [id number] 01/07/2024 [id number] / / [id number] Description:All implant time s are approximate. [employer] [id number] Remedy 175mm Stem Extension Knee Component Femoral - [id number] Implanted:Qty: 1 on 01/10/2021 by Familia Merida MD at [facility] Right: Knee [employer] [id number] 04/08/2024 [id number] / / [id number] Description:All implant time s are approximate. [employer] [id number] Palacos R High Viscosity Cement 40gm Bone Green - [id number] Implanted:Qty: 1 on 01/10/2021 by Familia Merida MD at [facility] Right: Knee [employer] 07/09/2023 [id number] / / [id number] Description:All implant time s are approximate. [employer] [id number] Palacos R High Viscosity Cement 40gm Bone Green - [id number] Implanted:Qty: 1 on 01/10/2021 by Familia Merida MD at [facility] Right: Knee [employer] 07/09/2023 [id number] / / [id number] Description:All implant time s are approximate. [employer] Rsktlg Remedy Stem Knee Large Component Tibial - [id number] Implanted:Qty: 1 on 01/10/2021 by Familia Merida MD at [facility] Right: Knee [employer] [id number] 04/08/2024 RSKTLG / / [id number] Description:All implant time s are approximate. Biocomposites 620-010 Kadoinkan Rapid Cure Kit Paste Sewing Machine Assembler 10cc 20cc Bone Void - [id number] Implanted:Qty: 1 on 04/18/2021 by Familia Merida MD at [facility] Right: Knee [employer] 11/07/2023 620-010 / / [id number] Description:TOBRAMYCIN HALF DOSE OF 1.2G AND VANCOMYCIN 1 GRAM MIXED IN STIMULAN Depuy Orthopaedics Inc [id number] Smartset Medium Viscosity Cement 40gm Bone Gentamicin - [id number] Implanted:Qty: 1 on 04/18/2021 by Familia Merida MD at [facility] Right: Knee [employer] 08/08/2022 [id number] / / [id number] Depuy [employer] Cup 55mm Acetabular Bi Mentum Femoral Proximal Press Fit [id number] - [id number] Implanted:Qty: 1 on 02/28/2023 by Familia Merida MD at [facility] Right: Hip [employer] 11/06/2024 [id number] / / Depuy Orth[employer] Liner Acet Hip Size 28 Poly Bi Mentum Altrx 55mm [id number] - [id number] Implanted:Qty: 1 on 02/28/2023 by Familia Merida MD at [facility] Right: Hip [employer] [id number] 06/08/2027 [id number] / / Depuy Orthopaed[employer] Inc Actis Collar Hip 8 Standard Offset Stem Femoral [id number] - [id number] Implanted:Qty: 1 on 02/28/2023 by Familia Merida MD at [facility] Right: Hip [employer] [id number] 10/09/2032 [id number] / / Depuy [employer] Inc Articul/Cristiano 28mm Cementless Hip +1.5mm 08/22 Taper Head Femoral Latex Free [id number] - [id number] Implanted:Qty: 1 on 02/28/2023 by Familia Merida MD at [facility] Right: Hip [employer] [id number] 12/08/2027 [id number] / / Explanted Type Area Crucible Furnace Tender Device Identifier Shelf Expiration Date Model / Serial / Lot Depuy Orthopaed[employer] Inc [id number] Attune Cruciate Retain Cementless Knee Right 7 Component Femoral - [id number] Implanted:Qty: 1 on 06/01/2019 by Carroll Cardenas MD at [facility] Explanted:Qty: 1 on 01/10/2021 at [facility] Right: Knee [employer] Inc 01/07/2028 [id number] / / [id number] Depuy [employer] Inc [id number] Attune 6mm Cruciate Retaining Rotate Platform Knee 7 Insert - [id number] Implanted:Qty: 1 on 06/01/2019 by Carroll Cardenas MD at [facility] Explanted:Qty: 1 on 01/10/2021 at [facility] Right: Knee [employer] 09/08/2023 [id number] / / [id number] Depuy [employer] [id number] Attune Cementless Rotate Platform Knee 9 Baseplate Tibial - [id number] Implanted:Qty: 1 on 06/01/2019 by Carroll Cardenas MD at [facility] Explanted:Qty: 1 on 01/10/2021 at [facility] Right: Knee [employer] 10/09/2028 [id number] / / [id number] Explanted Right Knee Antibiotic Femoral And Tibia Spacer Explanted:Qty: 1 on 04/18/2021 at [facility] Right: Knee [employer] Procedures Procedure Name Priority Date/Time Associated Diagnosis Comments COLONOSCOPY 06/02/2020 10:21 AM CDT from Last 3 Months or Most Recently Relevant to Health Maintenance Results * COLONOSCOPY (06/02/2020 10:21 AM CDT) Anatomical Region Laterality Modality Other Narrative Procedure Note Gustavo Darling MD - 06/02/2020 10:21 AM CDT [facility] Patient Name: Tavon Marsh Procedure Date: 06/02/2020 10:21 AM Date of : 1955 Admit Type: Outpatient Age: 65 Gender: Male Attending MD: Gustavo Darling M.D. Room: [facility] ENDOSCOPY ROOM 2 Note Status: Finalized Patient Profile: Refer to note in patient chart for documentation of history and physical. Procedure: Colonoscopy Indications: High risk colon cancer surveillance: Personalhistory of colonic polyps Referring MD: Erich Castillo M.D. Providers: Gustavo Darling M.D. Impression: - Hemorrhoids found on perianal exam. - Two 5 to 6 mm polyps in the descending colon andin the ascending colon, removed with a hot biopsyforceps. Resected and retrieved. Recommendation: - Discharge patient to home. - Resume previous diet. - Continue present medications. - Await pathology results. - Repeat colonoscopy in 5 years for surveillance. - Return to primary care physician as previously scheduled. Medicines: Propofol per Anesthesia Complications: No immediate complications. Estimated Blood Loss: Estimated blood loss: none. Procedure: Pre-Anesthesia Assessment: - This assessment was completed [Time of Assessment] prior to the administration of sedation. The benefits, risks and alternatives of theprocedure and sedation were discussed and informed consent was obtained. All questions were answered. Please referto the signed informed consent document in the medical record. The scope was passed under direct vision.The Colonoscope [id number] was introducedthrough the anus and advanced to the the cecum, identifiedby appendiceal orifice and ileocecal valve. The bowel preparation used was Miralax. The bowel preparation used was bisacodyl tablets. Bowel prep wasadministered using a single dose. The colonoscopy was performed without difficulty. The patient tolerated theprocedure well. The quality of the bowel preparation was excellent. Findings: Hemorrhoids were found on perianal exam. Two sessile polyps were found in the descending colon and ascending colon. The polyps were 5 to 6 mm in size. These polyps were removedwith a hot biopsy forceps. Resection and retrieval were complete. Verification of patient identification for the specimen was done bythe physician and nurse using the patient's name and date.Estimated blood loss was minimal. The exam was otherwise normal throughout the examined colon. Electronically signed by Gustavo Darling M.D. Gustavo Darling M.D. 06/02/2020 11:39:07 AM Number of Addenda: 0 Note Initiated On: 06/02/2020 10:21 AM Procedure Code(s): --- Professional --- 91597, Colonoscopy, flexible; with removal of tumor(s), polyp(s), or other lesion(s) by hot biopsy forceps Diagnosis Code(s): --- Professional --- D12.2, Benign neoplasm of ascending colon D12.4, Benign neoplasm of descending colon K64.9, Unspecified hemorrhoids Z86.010, Personal history of colonic polyps CPT copyright 2017 [employer]. All rights reserved. The codes documented in this report are preliminary and upon natural gas shothole driller reviewmay be revised to meet current compliance requirements. Recognized by the [employer] for promoting quality in endoscopy Gustavo Darling MD ENDOSCOPY PROCEDURES Final Re sult from Last 3 Months or Most Recently Relevant to Health Maintenance Insurance MEDICARE [facility] Address: [address] [address] MEDICARE COMMERCIAL GENERIC MEDICARE [facility] MEDICARE [facility] Advance Directives For more information, please contact: [phone] * Full Code (Latest Code Status on File) Date Activated Date Inactivated Comments 02/28/2023 11:35 AM 03/01/2023 3:21 PM * Full Code Date Activated Date Inactivated Comments 04/18/2021 7:11 PM 04/19/2021 2:36 PM * Full Code Date Activated Date Inactivated Comments 01/10/2021 4:08 PM 01/13/2021 7:43 PM * Full Code Date Activated Date Inactivated Comments 06/02/2020 9:06 AM 06/02/2020 4:36 PM * Full Code Date Activated Date Inactivated Comments 06/02/2020 9:06 AM 06/02/2020 9:06 AM Care Teams Dark Room Attendant Relationship Specialty Start Date End Date Erich Castillo MD PCP - General Internal Medicine 07/22/18
--- OUTSIDE RECORDS SUMMARY | 2024-12-09 10:09 | XMS_ITS | Clinical Summary ---
Author Organization [facility] Address [address] [place] [address] Care Team Providers Care Administrative Processor Name Role Phone Erich Castillo MD Primary Care Provider Allergies No known active allergies Medications allopurinoL (ZYLOPRIM) 300 mg tablet Take 300 mg by mouth daily. 03/02/2023 Active eplerenone (INSPRA) 25 mg Tablet Take 25 mg by mouth daily. Active pravastatin (PRAVACHOL) 40 mg tablet Take 40 mg by mouth daily with supper. Active carvediloL (COREG) 25 mg tablet Take 25 mg by mouth 2 times daily with meals. Active PARoxetine HCl (PAXIL) 20 mg tablet Take 20 mg by mouth daily. Active montelukast (SINGULAIR) 10 mg tablet Take 10 mg by mouth daily at bedtime. Active furosemide (LASIX) 40 mg tablet Take 40 mg by mouth daily. Active potassium chloride (KLOR-CON) 20 mEq Extended Release tablet Take 20 mEq by mouth daily. Active Active Problems No known active problems Encounters Date Type Department Care Team Description 12/08/2024 Telephone [facility] Hematology - Juan Pablo [address] [place] [address] Ambrosio Wilhelm MD IGG Levels 09/15/2024 External Device Data STL ABSTRACTION Provider, Abstract from Last 3 Months Family History Medical History Relation Name Comments Diabetes Mother Heart Disease Mother Cancer Sister 1 Relation Name Status Comments Brother 1 Alive Brother 2 Alive Daughter Alive Father Mother Sister 1 Alive Sister 2 Alive Sister 3 Alive Social History Tobacco Use Types Packs/Day Years Used Date Smoking Tobacco: Never Smokeless Tobacco: Former Chew Tobacco Cessation:Counseling Given: Not Answered Alcohol Use Standard Drinks/Week Comments Yes 0 (1 standard drink = 0.6 oz pur e alcohol) occasional Sex and Gender Information Value Date Recorded Sex Assigned at Not on file Legal Sex Male 10:49 AM CDT Gender Identity Not on file Sexual Orientation Not on file Last Filed Vital Signs Vital Sign Reading Time Taken Comments Blood Pressure 137/75 08/18/2024 11:42 AM STATION SUPERINTENDENT Pulse 69 08/18/2024 11:42 AM STATION SUPERINTENDENT Temperature 36.8 C (98.2 F) 08/18/2024 11:42 AM STATION SUPERINTENDENT Respiratory Rate 16 08/18/2024 11:42 AM STATION SUPERINTENDENT Oxygen Saturation 95% 08/18/2024 11:42 AM STATION SUPERINTENDENT Inhaled Oxygen Concentration - - Weight 134.7 kg (297 lb) 08/18/2024 11:42 AM STATION SUPERINTENDENT Height 180.3 cm (5' 11 ) 08/27/2023 1:28 PM STATION SUPERINTENDENT Body Mass Index 41.42 08/27/2023 1:28 PM STATION SUPERINTENDENT Plan of Treatment Upcoming Encounters Date Type Department Care Team (Late st Contact Info) Description 05/19/2025 10:00 AM CDT Office Visit [facility] Hematology - Juan Pablo [address] [facility] [address] [place] [address] Ambrosio Wilhelm MD [address] [facility] [address] [place] [address] Health Maintenance Due Date Last Done Comments Pre-Diabetes and Diabetes Screening 1955 Traditional Medicare (ACO) A nnual Wellness Visit 02/06/1975 FIT-DNA Q 3 years 02/06/2001 FIT/FOBT Q 1 year 02/06/2001 Flex Sig/CT Colonography Q 5 years 02/06/2001 RSV VACCINE (60+ or ) (1 - Risk 60-74 years 1-dose series) 2016 PNEUMOCOCCAL VACCINE 50+ YEA RS (2 of 2 - PCV) 08/08/2017 08/08/2016 DTAP/TDAP/TD VACCINES (2 - T d or Tdap) 07/03/2022 07/03/2012 INFLUENZA VACCINE (#1) 2024 8, 07/22/2017, 07/03/2012 COLORECTAL SCREENING 06/02/2030 06/02/2020, 06/02/20 20 Colorectal Cancer Screening 06/02/2030 ZOSTER VACCINE Completed 02/12/2019, 11/07, 08/08/2016 Insurance MEDICARE PART A AND B [facility] Care Teams Administrative Processor Relationship Specialty Start Date End Date Erich Castillo MD [address] [place] [address] PCP - General Internal Medicine 08/26/23
--- OUTSIDE RECORDS SUMMARY | 2024-12-09 10:09 | XMS_ITS | CONTINUITY OF CARE DOCUMENT ---
Author Name ean mckoy Address Unknown Organization [facility] Address [address] [place] [address] Phone [phone] Care Team Providers Care Joy Loader Name Role Phone Dillon Pollard MD Unavailable [phone] Dillon Pollard MD Unavailable PROBLEMS Condition Status Date Provider Notes CHEST PAIN-TYPE TO BE DETERMINED;WILLWU active Teofilo Melendrez MD LIGHTHEADEDNESS;WILL VILLANUEVA active Teofilo watson MD PALPITATIONS;NML TSH WILL VILLANUEVA active Teofilo Melendrez MD HEMANGIOMA, HEPATIC;WILL GET REPEAT CT 2012 PER PRIMARY active Teofilo Melendrez MD FATTY LIVER DISEASE active Teofilo Melendrez MD AORTIC ATHEROSCLEROSIS active Teofilo Melendrez MD LEFT ATRIAL ENLARGEMENT;MILD 2010 WITH NML LV active Teofilo Melendrez MD SLEEP APNEA;REPEAT STUDY RECOMMENDED active Teofilo Melendrez MD FAMILY HISTORY OF HEART DISEASE active Fito Melendrez MD OBESITY;WILL CONSIDER MEDIFAST active Yenni Melendrez MD HYPERCHOLESTEROLEMIA;LABS PE R PRIMARY, LDL 147 2010 active Teofilo Melendrez MD HTN CONTROLLED;LABS PER PRIMARY active Fito Melendrez MD ENCOUNTERS Date Type Provider Location Encounter Diag nosis - In-person encounter Office Visit Teofilo Melendrez MD [facility] HTN CONTROLLED;LABS PER PRIMARYHYPERCHOLESTEROL EMIA;LABS PER PRIMARY, LDL 147 2011OBESITY;WILL CONSIDER MEDIFASTFAMILY HISTORY OF HEART DISEASESLEEP APNEA;REPEAT STUDY RECOMMENDEDLEFT ATRIAL ENLARGEMENT;MILD 2010 WITH NML LVAORTIC ATHEROSCLEROSISFATTY LIVER DISEASEHEMANGIOMA, HEPATIC;WILL GET REPEAT CT 2011 PER PRIMARYPALPITATIONS;NML TSH WILL WULIGHTHEADEDNESS;WILL WUCHEST PAIN-TYPE TO BE DETERMINED;WILLWU VITAL SIGNS Date Observation Value Provider oxygen saturation, oximetry 97 % Angelita Roberto Carlos CORREIA blood pressure, diastolic 71 mm[Hg] Verito garrett Roberto Carlos CORREIA blood pressure, systolic 136 mm[Hg] Marly kay Roberto Carlos CORREIA pulse rate 62 /min Angelita Azevedo MA respiratory rate E&M 16 /min Angelitawalter Azevedo MA weight E&M 256 [lb_av] Angelita Azevedo MA ALLERGIES No Known Drug Allergies RESULTS Date Observation Value Provider Reference Range Interpretation Location PTT patient 29.2 s [facility] prothrombin time (patient) 12.2 s [facility] international normalized ratio (INR) 0.94 [facility] platelet count 151 10*3/uL [facility] mean corpuscular hemoglobin concentration, RBC 35.2 g/dL [facility] mean corpuscular hemoglobin, RBC 33.0 pg [facility] mean corpuscular volume, RBC 94 fL [facility] hematocrit, blood 41.5 % [facility] hemoglobin, blood 14.6 g/dL [facility] erythrocyte (RBC) count 4.42 10*6/mm3 [facility] monocytes as percent of blood leukocytes 7.3 % [facility] lymphocytes as percent of blood leukocytes 39.2 % [facility] leukocyte count, blood 5.2 10*3/mm3 [facility] LDL/HDL ratio, serum 3.1 [facility] cholesterol/HDL ratio, serum 4.7 [facility] triglyceride, serum, fasting 144 mg/dL [facility] HDL cholesterol, serum 48 mg/dL [facility] LDL cholesterol, serum 147 mg/dL [facility] cholesterol, serum 224 mg/dL [facility] anion gap, serum 6 [facility] estimated glomerular filtration rate 74 mL/min [facility] albumin/globulin ratio, serum 2.0 [facility] protein, total, serum 6.6 g/dL [facility] albumin, serum 4.4 g/dL [facility] bilirubin, serum, total 0.68 mg/dL [facility] alkaline phosphatase, serum 60 1/L [facility] alanine aminotransferase (SGPT), serum 88 1/L [facility] aspartate aminotransferase (SGOT), serum 51 1/L [facility] calcium, serum 9.3 mg/dL [facility] blood glucose, fasting 114 mg/dL [facility] creatinine, serum 1.1 mg/dL [facility] urea nitrogen, blood 14 mg/dL [facility] carbon dioxide, serum, total 32.5 mmol/L [facility] chloride, serum 101 mmol/L [facility] potassium, serum 4.5 mmol/L [facility] sodium, serum 139 mmol/L [facility] HISTORY OF MEDICATION USE Medication Status Instructions Dates Provider Indications Com ments ZOCOR 40 MG ORAL TABLET active Take 1 tab by maritza at bedtime. Leonardo Enamorado RN ASPIRIN 81 MG ORAL TABLET active ONE TAB. DAILY Teofilo Melendrez MD ALPRAZOLAM 0.25 MG ORAL TABLET active once daily Angelita Azevedo MA ZOLPIDEM TARTRATE 10 MG ORAL TABLET active once daily Angelita Azevedo MA PRAVASTATIN SODIUM 40 MG ORAL TABLET completed ONE TAB. DAILY - Leonardo Enamorado RN PAROXETINE HCL 20 MG ORAL TABLET active once daily Angelita Azevedo MA MISOPROSTOL 200 MCG ORAL TABLET active twice daily Angelita Azevedo MA LISINOPRIL 10 MG ORAL TABLET active ONE TAB. DAILY Angelita Azevedo MA HYDROCHLOROTHIAZIDE 25 MG ORAL TABLET active ONE TAB DAILY Angelita Azevedo MA DICLOFENAC SODIUM 75 MG ORAL TABLET DELAYED RELEASE active twice daily Angelita Azevedo MA ATENOLOL 100 MG ORAL TABLET active ONE TAB. DAILY Angelita Azevedo MA ALLOPURINOL 300 MG ORAL TABLET active ONE TAB. DAILY Angelita Azevedo MA SOCIAL HISTORY Date Observation Value Provider social history E&M Marital Statu s: L jenni with family/friends E thnicity: Teofilo Melendrez MD social history reviewed E&M reviewed Teofilo Melendrez MD physical exercise, f requency, days per week no [employer] caffeine use, averag e drinks per day yes [employer] alcohol use, average drinks per day 1-3 drinks per day [employer] number of years as a smoker 10 years or m ore [employer] smoking status Non-smoker [employer] MENTAL STATUS Date Observation Value Provider assessment of judgme nt and insight E&M Alert and oriented to time, place and person. Mood and affect are normal. Teofilo Melendrez MD INSURANCE PROVIDERS Payer name Policy type / Coverage type [employer] ID ANGELATTAN [employer] [id number] [place] MEDICARE Medicare [id number] TREATMENT PLAN Date Name Performer New Patient Teofilo Melendrez MD New Patient: O rders: X -Ray, Chest, PA & Lateral (CPT-96410) S tress Test - Adenosine (76334) C arotid Duplex Bilateral (CPT-92366) E vent Recorder (*) H olter Monitor 24 Hr (CPT-01312) Teofilo Melendrez MD New Patient: O rders: X -Ray, Chest, PA & Lateral (CPT-38565) S tress Test - Adenosine (33122) C arotid Duplex Bilateral (CPT-83939) E vent Recorder (*) H olter Monitor 24 Hr (CPT-67796) Teofilo Melendrez MD New Patient: H is updated medication list for this problem includes: Atenolol 100 Mg Tabs (Atenolol) ..... One tab. daily Lisinopril 10 Mg Tabs (Lisinopril) ..... One tab. daily Alprazolam 0.25 Mg Tabs (Alprazolam) ..... Once daily Orders: X -Ray, Chest, PA & Lateral (CPT-60483) S tress Test - Adenosine (95565) C arotid Duplex Bilateral (CPT-51539) E vent Recorder (*) H olter Monitor 24 Hr (CPT-38510) Teofilo Melendrez MD New Patient: H is updated medication list for this problem includes: Atenolol 100 Mg Tabs (Atenolol) ..... One tab. daily Lisinopril 10 Mg Tabs (Lisinopril) ..... One tab. daily Alprazolam 0.25 Mg Tabs (Alprazolam) ..... Once daily Orders: X -Ray, Chest, PA & Lateral (CPT-52653) S tress Test - Adenosine (90625) C arotid Duplex Bilateral (CPT-01991) E vent Recorder (*) H olter Monitor 24 Hr (CPT-26821) Teofilo Melendrez MD New Patient: H is updated medication list for this problem includes: Atenolol 100 Mg Tabs (Atenolol) ..... One tab. daily Hydrochlorothiazide 25 Mg Tabs (Hydrochlorothiazide) ..... One tab daily Lisinopril 10 Mg Tabs (Lisinopril) ..... One tab. daily Orders: X -Ray, Chest, PA & Lateral (CPT-46806) S tress Test - Adenosine (17492) C arotid Duplex Bilateral (CPT-84911) E vent Recorder (*) H olter Monitor 24 Hr (CPT-73661) Teofilo Melendrez MD New Patient: O rders: X -Ray, Chest, PA & Lateral (CPT-77708) S tress Test - Adenosine (99628) C arotid Duplex Bilateral (CPT-13416) E vent Recorder (*) H olter Monitor 24 Hr (CPT-97086) Teofilo Melendrez MD New Patient: O rders: X -Ray, Chest, PA & Lateral (CPT-95937) S tress Test - Adenosine (30440) C arotid Duplex Bilateral (CPT-66286) E vent Recorder (*) H olter Monitor 24 Hr (CPT-85196) Teofilo Melendrez MD New Patient: O rders: X -Ray, Chest, PA & Lateral (CPT-20246) S tress Test - Adenosine (33349) C arotid Duplex Bilateral (CPT-02702) E vent Recorder (*) H olter Monitor 24 Hr (CPT-53311) Teofilo Melendrez MD New Patient: H is updated medication list for this problem includes: Pravastatin Sodium 40 Mg Tabs (Pravastatin sodium) ..... One tab. daily Orders: X -Ray, Chest, PA & Lateral (CPT-88097) S tress Test - Adenosine (44696) C arotid Duplex Bilateral (CPT-77872) E vent Recorder (*) H olter Monitor 24 Hr (CPT-30013) Teofilo Melendrez MD New Patient: H is updated medication list for this problem includes: Atenolol 100 Mg Tabs (Atenolol) ..... One tab. daily Hydrochlorothiazide 25 Mg Tabs (Hydrochlorothiazide) ..... One tab daily Lisinopril 10 Mg Tabs (Lisinopril) ..... One tab. daily Teofilo Melendrez MD Date Name Sleep Study Holter Monitor 24 Hr Event Recorder Carotid Duplex Bilat eral Stress Test - Adenos ine X-Ray, Chest, PA & L ateral
--- OUTSIDE RECORDS SUMMARY | 2024-12-09 10:09 | XMS_ITS | Encounter Summary ---
Author Organization [facility] Address [address] [place] [address] Phone Care Team Providers Care Document Imaging Manager Name Role Phone Erich Castillo MD Primary Care Provider [phone] Encounter Details Date Type Department Care Team (Latest Contact Info) Description 11/11/2024 Transcribe Orders [facility] Preop/Pacu II [address] [place] [address] Osito Rueda MD [address] [place] [address] Pre-op testing (Primary Dx) Social History Tobacco Use Types Packs/Day Years Used Date Smoking Tobacco: Never Smokeless Tobacco: Former Chew Alcohol Use Standard Drinks/Week Comments Yes 5 (1 standard drink = 0.6 oz pur e alcohol) Sex and Gender Information Value Date Recorded Sex Assigned at Not on file 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
--- OUTSIDE RECORDS SUMMARY | 2024-12-09 10:09 | XMS_ITS | Clinical Summary ---
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 Gender Identity Not on file Sexual Orientation Not on file Plan of Treatment Health Maintenance Due Date Last Done Comments Colorectal Cancer Screening Colonoscopy (10 Years) 1955 Hepatitis C 02/06/1974 DTaP, Tdap and Td Vaccines ( 1 - Tdap) 02/06/1975 Zoster Vaccines (1 of 2) 02/06/2006 Pneumococcal Vaccine: 65+ Ye ars (1 of 1 - PCV) 02/06/2021 COVID-19 Vaccine ( - 2023-2 5 season) 2024 RSV Immunization or 60+ Years (1 - 1-dose 75+ series) 02/06/2031 Meningococcal B Vaccine Aged Out No l onger eligible based on patient's age to complete this topic Meningococcal Vaccine Aged Out No tiffanie yuni eligible based on patient's age to complete this topic RSV Immunizations Under 20 Months Aged Out No longer eligible based on patient's age to complete this topic
--- OUTSIDE RECORDS SUMMARY | 2024-12-09 10:09 | XMS_ITS | Clinical Summary ---
Author Organization [facility] Address [address] [place] [address] Phone Care Team Providers Care Loft Rigger Name Role Phone Erich Castillo MD Primary Care Provider [phone] Allergies No known active allergies Medications allopurinol (ZYLOPRIM) 300 MG Tablet Take 300 mg by mouth nightly. Active carvedilol (COREG) 25 MG Tablet Take 25 mg by mouth 2 times daily. Active eplerenone (INSPRA) 25 MG Tablet Take 25 mg by mouth every morning. Active fluticasone (FLONASE) 50 MCG/ACT Suspension 1 [place] by Nasal route as needed. Use in each nostril as directed. Active furosemide (LASIX) 40 MG Tablet Take 40 mg by mouth every morning. Active potassium chloride SA (Klor-Con M20) 20 MEQ Tablet Controlled Release Take 20 mEq by mouth daily. Active montelukast (SINGULAIR) 10 MG Tablet Take 10 mg by mouth every evening. Active PARoxetine (PAXIL) 20 MG Tablet Take 20 mg by mouth every morning. Active pravastatin (PRAVACHOL) 40 MG Tablet Take 40 mg by mouth daily. Active VITAMIN E PO Take by mouth daily. Instructed to hold for 5 days prior to surgery on 11/17/2024 Active cyclobenzaprine (FLEXERIL) 10 MG Tablet Take 10 mg by mouth 2 times daily. 11/12/19 25 Discontin ued(Med List Clean Up) DOXYCYCLINE MONOHYDRATE PO Take 100 mg by mouth 2 times daily. 11/12/19 25 Discontin ued(Med List Clean Up) ondansetron (ZOFRAN-ODT) 4 MG TABLET DISPERSIBLE Take 4 mg by mouth every 8 hours as needed. 11/12/19 25 Discontin ued(Med List Clean Up) spironolactone (ALDACTONE) 25 MG Tablet Take 25 mg by mouth every morning. 11/12/19 25 Discontin ued(Med List Clean Up) zolpidem (AMBIEN) 10 MG Tablet Take 5 mg by mouth nightly as needed. Takes 1/2 tablet 11/12/19 25 Discontin ued(Med List Clean Up) Encounters Date Type Department Care Team Description 11/17/2024 10:55 AM CDT [facility] [address] [place] [address] Eder Hernandez MD 11/17/2024 10:10 AM CDT - 11/17/2024 11:40 AM CDT Surgery [facility] [address] [place] [address] Osito Rueda MD BILATERAL EUSTACHIAN TUBE BALLOON DILATION 11/17/2024 8:12 AM CDT - 11/17/2024 12:55 PM CDT Hospital [facility] Preop/Pacu II [address] [place] [address] Osito Rueda MD Discharge Disposition: Discharged to home or Selfcare 11/17/2024 Travel 11/11/2024 Travel 11/11/2024 Transcribe Orders [facility] Preop/Pacu II [address] [place] [address] Osito Rueda MD Pre-op testing (Primary Dx) from Last 3 Months Family History Medical History Relation Name Comments Asthma Father Chronic Obstructive Pulmonary Disease Father Congestive Heart Failure Mother Diabetes Mother Hypertension Mother Relation Name Status Comments Father Mother Social History Tobacco Use Types Packs/Day Years Used Date Smoking Tobacco: Never Smokeless Tobacco: Former Chew Tobacco Cessation:Counseling Given: Not Answered Alcohol Use Standard Drinks/Week Comments Yes 5 (1 standard drink = 0.6 oz pur e alcohol) Sex and Gender Information Value Date Recorded Sex Assigned at Not on file 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 Gender Identity Not on file Sexual Orientation Not on file Last Filed Vital Signs Vital Sign Reading Time Taken Comments Blood Pressure 144/76 11/17/2024 12:30 PM CDT Pulse 57 11/17/2024 12:30 PM CDT Temperature 36.7 C (98.1 F) 11/17/2024 12:30 PM CDT Respiratory Rate 18 11/17/2024 12:3 0 PM CDT Oxygen Saturation 97% 11/17/2024 12: 30 PM CDT Inhaled Oxygen Concentration - - Weight 132.7 kg (292 lb 9.6 oz) 11/17/2024 8:40 AM CDT Height 182.9 cm (6') 11/17/2024 8:40 AM CDT Body Mass Index 39.68 11/17/2024 8:40 AM CDT Plan of Treatment Not on file Medical Devices Implanted Type Area Blind Teacher Device Identifier Shelf Expiration Date Model / Serial / Lot Tube Ventilation 1.14mm Lang Bevel Grommet Ear [employer] - [id number] Implanted:Qty: 1 on 11/17/2024 by Osito Rueda MD at [facility] IMPLANT Right: Ear [employer] 02/09/2030 [id number] / [id number] / [id number] Tube Ventilation 1.14mm Lang Bevel Grommet Ear [employer] [employer] - [id number] Implanted:Qty: 1 on 11/17/2024 by Osito Rueda MD at [facility] IMPLANT Left: Ear [employer] 11/17/2033 [id number] / [id number] / [id number] Procedures Procedure Name Priority Date/Time Associated Diagnosis Comments LMA Routine 11/17/2024 11:18 AM CDT CREATE EARDRUM OPENING,GEN ANESTH 11/17/2024 10:35 AM CDT BILATERAL DYSFUNCTION OF EUSTACHIAN TUBES Special Needs PRE OP TESTING DRAWN AT PRIMARY'S OFFICE, RESULTS IN PAPER CHART & MEDIA Hx of Htn, Gout, Bilateral hearing loss, Sleep apnea uses cpap 6ft 295lb NASOPHARYNGOSC SURG DILAT EUST TUBE ESTHELA 11/17/2024 10:35 AM CDT BILATERAL DYSFUNCTION OF EUSTACHIAN TUBES Special Needs PRE OP TESTING DRAWN AT PRIMARY'S OFFICE, RESULTS IN PAPER CHART & MEDIA Hx of Htn, Gout, Bilateral hearing loss, Sleep apnea uses cpap 6ft 295lb from Last 3 Months Results * LMA (11/17/2024 11:18 AM CDT) Narrative Eder Hernandez MD - 11/17/2024 11:18 AM CDT Eder Hernandez MD 11/17/2024 11:18 AM LMA Staffing Performed: anesthesiologist Performed by: Eder Hernandez MD Authorized by: Eder Hernandez MD Airway Details Overall Difficulty: Easy Preoxygenated: Yes Ease of Mask Ventilation: Not attempted LMA Type: Disposable LMA Size: 5 Adequate seal established: Yes LMA placement confirmed by: bilateral breath sounds, CO2 detection Atraumatic LMA Placement Eder Hernandez MD ANESTHESIA ORDERABLES Final R esult from Last 3 Months Insurance MEDICARE COMMERCIAL GENERIC Care Teams Loft Rigger Relationship Specialty Start Date End Date Erich Castillo MD [address] [place] [address] PCP - General Internal Medicine 11/17/24
--- OUTSIDE RECORDS SUMMARY | 2024-12-09 10:09 | XMS_ITS ---
Author Organization [facility] Address [address] [place], [place] [address] Care Team Providers Care Acquisition Marketing Manager Name Role Phone TEDDY FRITZ Unavailable [phone] Anna Erich Unavailable Unavailable KAREN SANCHEZ Unavailable [phone] Allergies Allergen (clinical drug ingredient) Drug/Non Drug Allergy documented on EMR Reaction Allergy Type Onset Date Status Adhesive Unknown Allergy Active Latex Latex Unknown Allergy Active REASON FOR VISIT *General care Medications Medication SIG (Take, Route, Frequency, Duration) Notes Start Date End Date Status Cefdinir 300 MG TAKE 1 CAPSULE BY MO UTH EVERY 12 HOURS Oral for 15 Days Active Doxycycline Monohydrate 100 MG TAKE 1 CAPSULE BY MOUTH TWICE A DAY Oral for 15 Days Active PARoxetine HCl 20 MG Oral for 90 Days Active Carvedilol 25 MG TAKE 1 TABLET BY NOAH TH TWICE A DAY WITH FOOD Oral for 90 Days Active Spironolactone 25 MG Oral for 90 Days Active Furosemide 40 MG Oral for 90 Days Active Encounters Encounter Location Date Provider Diagnosis [address] [id number] 07/23/2024 KAREN SANCHEZ Other hammer toe(s) (acquired), right foot M20.41 ; Tinea unguium B35.1 ; Other hammer toe(s) (acquired), left foot M20.42 ; Pain in right toe(s) M79.674 ; Pain in left toe(s) M79.675 ; Unspecified atherosclerosis of [place] arteries of extremities, bilateral legs I70.203 and Acquired keratosis [keratoderma] palmaris et plantaris L85.1 Assessments Encounter Date Diagnosis (ICD Code) Assessment Notes Treatment Notes Treatment Clinical Notes Section Notes 07/23/2024 Other hammer toe(s) (acquired), right foot (ICD-10 - M20.41) The patient was educated regarding how to mechanically stabilize their deformity. The patient was given education about shoe recommendations specific for the condition. The patient was educated about custom orthotics and how appropriate shoes and orthotics can prevent further worsening of the deformity. The patient was educated about how bad shoe habits can worsen the condition. NSAIDS, P.T., injections and other conservative treatments were discussed. Both surgical and non surgical treatments were discussed, but conservative options were emphasized. 07/23/2024 Tinea unguium (ICD-10 - B35.1) Aseptic debridement of elongated thickened nails x 10 using sterile nippers, nails were debrided in length and thickness by 30% utilizing a nail nipper without incident. The patient was educated regarding all treatment options that include topical and oral antifungal treatments. I discussed the options of taking a sample of the nail to confirm diagnosis. Nail clippings were not sent for pathology analysis. The patient was educated why and how the fungal infection evolved in their feet and the patient was given information regarding how to prevent further infection. The patient was told to keep feet dry and change socks. The patient was told to be careful with old shoes and excessive sweating. The patient was educated regarding both OTC and prescription treatments. 07/23/2024 Other hammer toe(s) (acquired), left foot (ICD-10 - M20.42) 07/23/2024 Pain in right toe(s) (ICD-10 - M79.674) 07/23/2024 Pain in left toe(s) (ICD-10 - M79.675) 07/23/2024 Unspecified atherosclerosis of lower [place] arteries of extremities, bilateral legs (ICD-10 - I70.203) Patient educated on risks and aggravating factors of PVD, including conservative treatment options such as a diet and exercise regimen to aid in slowing progression of vascular disease 07/23/2024 Acquired keratosis [keratoderma] palmaris et plantaris (ICD-10 - L85.1) Pre-ulcerative keratoderma debrided sharply down to the level of healthy tissue using a 15 blade. After removal of overlying extensive hyperkeratosis, healthy tissue was noted and care was taken to assure that no undermining or probing was present. It should be noted that no probing was noted and no infection or drainage was noted. Plan Of Treatment Treatment Notes Assessment Notes Other hammer toe(s) (acquired), right fo ot The patient was educated regarding how to mechanically stabilize their deformity. The patient was given education about shoe recommendations specific for the condition. The patient was educated about custom orthotics and how appropriate shoes and orthotics can prevent further worsening of the deformity. The patient was educated about how bad shoe habits can worsen the condition. NSAIDS, P.T., injections and other conservative treatments were discussed. Both surgical and non surgical treatments were discussed, but conservative options were emphasized. Tinea unguium Aseptic debridement of elongated thickened nails x 10 using sterile nippers, nails were debrided in length and thickness by 30% utilizing a nail nipper without incident. The patient was educated regarding all treatment options that include topical and oral antifungal treatments. I discussed the options of taking a sample of the nail to confirm diagnosis. Nail clippings were not sent for pathology analysis. The patient was educated why and how the fungal infection evolved in their feet and the patient was given information regarding how to prevent further infection. The patient was told to keep feet dry and change socks. The patient was told to be careful with old shoes and excessive sweating. The patient was educated regarding both OTC and prescription treatments. Unspecified atherosclerosis of lower [place] arteries of extremities, bilateral legs Patient educated on risks and aggravating factors of PVD, including conservative treatment options such as a diet and exercise regimen to aid in slowing progression of vascular disease Acquired keratosis [keratode rma] palmaris et plantaris Pre-ulcerative keratoderma debrided sharply down to the level of healthy tissue using a 15 blade. After removal of overlying extensive hyperkeratosis, healthy tissue was noted and care was taken to assure that no undermining or probing was present. It should be noted that no probing was noted and no infection or drainage was noted. Next Appt Details Follow Up: 3 Months, Reason: Provider Name:JEANNINE GUZMAN, 12/17/2024 11:40:00 AM, [address] [place] [address], [phone], Progress Notes * FAWAD ALDRICH KDOB:[birth year] (69 yo M)Acc No.[id number]:07/23/2024 Patient: FAWAD NIELSON Provider: Enrico SANCHEZ :1955 A ge:69 Y S ex:Male Date:07/23/2024 Address:[address] , [facility] Subjective: * Chief Complaints: * 1 . *General care. * HPI: H PI: General care P atient presents to the office for at risk foot care. Patient states that their nails are thickened, elongated and painful. Patient states that it is aggravated by shoe gear. Onset is gradual. Patient denies being diabetic., Patient denies taking blood thinners., Date last seen by Dr. Castillo was 05/2024., Initials [facility]. * ROS: G eneral / Constitutional: Patient denies c hills, fatigue, fever. C ardiovascular: Patient denies p alpatations, other vascular anomalies.?Patient complains of h air loss on legs, extremities cool. M usculoskeletal: Patient denies o rthotic use, broken foot bone, childhood foot problems. S kin: Patient denies h jenni, rash. P atient complains of f ungal nails, nail changes, dry skin. N eurologic: Patient denies s troke, Numbness, Burning/Tingling. ? * Medical History: * Medications: T aking Furosemide 40 MG Tablet Oral , Taking PARoxetine HCl 20 MG Tablet Oral , Taking Cefdinir 300 MG Capsule TAKE 1 CAPSULE BY MOUTH EVERY 12 HOURS Oral , Taking Doxycycline Monohydrate 100 MG Capsule TAKE 1 CAPSULE BY MOUTH TWICE A DAY Oral , Taking Carvedilol 25 MG Tablet TAKE 1 TABLET BY MOUTH TWICE A DAY WITH FOOD Oral , Taking Spironolactone 25 MG Tablet Oral * Allergies: L atex, Adhesive. Objective: * Vitals: * Examination: P hysical Examination: V ascular: Dorsalis Pedis pulse noted at 1/4 right foot and 1/4 left foot and Posterior Tibial pulse noted at 1/4 right foot and 1/4 left foot, Capillary refill times noted to be less than three seconds x ten, Temperature gradient noted to be warm to cool to bilateral foot, pedal hair present to bilateral foot and no varicosities are noted Dermatologic: there are no open lesions, no signs of active clinical infection, no erythema noted, no ecchymoses, nails are elongated thickened and dystrophic with subungual debris x ten, hyperkeratotic tissue plantar fifth metatarsal head bilateral foot Musculoskeletal: there is pain to palpation onto nail plate x ten, no calf pain noted bilaterally, arch height noted at 2/5 non-weight bearing bilaterally, first metatarsophalangeal joint range of motion 30 deg non-weight bearing bilaterally, flexible fifth digit hammer toe deformity noted to bilateral foot reducible with kelikian push up test, pain to palpation sub fifth metatarsal head hyperkeratotic tissue bilateral foot Neurology: protective sensation intact to light touch bilateral digits one through five, vibratory sensation intact to first metatarsophalangeal joint bilaterally. Assessment: * Assessment: 1. T inea unguium - B35.1 (Primary) 2 . O ther hammer toe(s) (acquired), right foot - M20.41 3 . O ther hammer toe(s) (acquired), left foot - M20.42 ? 4 . P ain in right toe(s) - M79.674 5 . P ain in left toe(s) - M79.675 6 . U nspecified atherosclerosis of lower [place] arteries of extremities, bilateral legs - I70.203 7 . 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 O ther hammer toe(s) (acquired), right foot Notes: The patient was educated regarding how to mechanically stabilize their deformity. The patient was given education about shoe recommendations specific for the condition. The patient was educated about custom orthotics and how appropriate shoes and orthotics can prevent further worsening of the deformity. The patient was educated about how bad shoe habits can worsen the condition. NSAIDS, P.T., injections and other conservative treatments were discussed. Both surgical and non surgical treatments were discussed, but conservative options were emphasized. 3. U nspecified atherosclerosis of lower [place] arteries of extremities, bilateral legs Notes: Patient educated on risks and aggravating factors of PVD, including conservative treatment options such as a diet and exercise regimen to aid in slowing progression of vascular disease ? 4. A cquired keratosis [keratoderma] palmaris et plantaris Notes: Pre-ulcerative keratoderma debrided sharply down to the level of healthy tissue using a 15 blade. After removal of overlying extensive hyperkeratosis, healthy tissue was noted and care was taken to assure that no undermining or probing was present. It should be noted that no probing was noted and no infection or drainage was noted. * Procedure Codes: 1 1056 TRIM SKIN LESIONS, 2 TO 4, Modifiers: Q8 , 81290 DEBRIDE NAIL, 6 OR MORE, Modifiers: 59 , Q8 * Follow Up: 3 Months * Billing Information: * Visit Code: * Procedure Codes: 75185 TRIM SKIN LESIONS, 2 TO 4. Modifiers: Q8 36554 DEBRIDE NAIL, 6 OR MORE. Modifiers: 59, Q8 * AND DIE MAKER Sign off status: Completed true * Provider: Enrico SANCHEZ Date: 09/22/2023 Generated for Iris loo/García/Leticia on: 0 12/09/2024 10:09 AM CDT History and Physical Notes * HPI (History of Present Illness) Category Sub-Category Detail Notes Category Not es HPI General care Patient presents to the office for at risk foot care. Patient states that their nails are thickened, elongated and painful. Patient states that it is aggravated by shoe gear. Onset is gradual. Patient denies being diabetic., Patient denies taking blood thinners., Date last seen by Dr. Castillo was 05/2024., Initials [facility] Examination Category Sub-Category Detail Notes Category Not es Physical Examination Vascular: Dorsalis Pedis pulse noted at 1/4 right foot and 1/4 left foot and Posterior Tibial pulse noted at 1/4 right foot and 1/4 left foot, Capillary refill times noted to be less than three seconds x ten, Temperature gradient noted to be warm to cool to bilateral foot, pedal hair present to bilateral foot and no varicosities are noted Dermatologic: there are no open lesions, no signs of active clinical infection, no erythema noted, no ecchymoses, nails are elongated thickened and dystrophic with subungual debris x ten, hyperkeratotic tissue plantar fifth metatarsal head bilateral foot Musculoskeletal: there is pain to palpation onto nail plate x ten, no calf pain noted bilaterally, arch height noted at 2/5 non-weight bearing bilaterally, first metatarsophalangeal joint range of motion 30 deg non-weight bearing bilaterally, flexible fifth digit hammer toe deformity noted to bilateral foot reducible with kelikian push up test, pain to palpation sub fifth metatarsal head hyperkeratotic tissue bilateral foot Neurology: protective sensation intact to light touch bilateral digits one through five, vibratory sensation intact to first metatarsophalangeal joint bilaterally
--- OUTSIDE RECORDS SUMMARY | 2024-12-09 10:09 | XMS_ITS | Patient Health Record ---
Author Organization [facility] Address [address] [place], [place] [address] Care Team Providers Care Entry Level Finance Name Role Phone TEDDY FRITZ Unavailable [phone] Erich Castillo Unavailable Unavailable KAREN SANCHEZ Unavailable [phone] Allergies Allergen (clinical drug ingredient) Drug/Non Drug Allergy documented on EMR Reaction Allergy Type Onset Date Status Adhesive Unknown Allergy Active Latex Latex Unknown Allergy Active Reason For Referral No Information Medications Medication SIG (Take, Route, Frequency, Duration) Notes Start Date End Date Status PARoxetine HCl 20 MG Oral for 90 Days Active Furosemide 40 MG Oral for 90 Days Active Cefdinir 300 MG TAKE 1 CAPSULE BY MO UTH EVERY 12 HOURS Oral for 15 Days Active Carvedilol 25 MG TAKE 1 TABLET BY NOAH TH TWICE A DAY WITH FOOD Oral for 90 Days Active Doxycycline Monohydrate 100 MG TAKE 1 CAPSULE BY MOUTH TWICE A DAY Oral for 15 Days Active Spironolactone 25 MG Oral for 90 Days Active Encounters Encounter Location Date Provider Diagnosis [facility] [address] [place], [place] [id number] 05/21/2024 KAREN SANCHEZ Other hammer toe(s) (acquired), right foot M20.41 ; Tinea unguium B35.1 ; Other hammer toe(s) (acquired), left foot M20.42 ; Pain in right toe(s) M79.674 ; Pain in left toe(s) M79.675 ; Unspecified atherosclerosis of [place] arteries of extremities, bilateral legs I70.203 and Acquired keratosis [keratoderma] palmaris et plantaris L85.[address] [id number] 07/23/2024 KAREN SANCHEZ Other hammer toe(s) (acquired), right foot M20.41 ; Tinea unguium B35.1 ; Other hammer toe(s) (acquired), left foot M20.42 ; Pain in right toe(s) M79.674 ; Pain in left toe(s) M79.675 ; Unspecified atherosclerosis of [place] arteries of extremities, bilateral legs I70.203 and Acquired keratosis [keratoderma] palmaris et plantaris L85.[address] [id number] 10/15/2024 TEDDY FRITZ Tinea unguium B35.1 ; Pain in right foot M79.671 ; Pain in left foot M79.672 ; Atherosclerosis of [place] arteries of extremities with intermittent claudication, bilateral legs I70.213 and Acquired keratosis [keratoderma] palmaris et plantaris L85.1 Assessments Encounter Date Diagnosis (ICD Code) Assessment Notes Treatment Notes Treatment Clinical Notes Section Notes 05/21/2024 Tinea unguium (ICD-10 - B35.1) Aseptic debridement [...] educated regarding both OTC and prescription treatments. 05/21/2024 Other hammer toe(s) (acquired), right foot (ICD-10 [...] prescription treatments. 07/23/2024 Other hammer toe(s) (acquired), right foot [...] were discussed, but conservative options were emphasized. 10/15/2024 Tinea unguium (ICD-10 - B35.1) Nails 1-5 Bilateral were debrided extensively with nail nippers and emery board, reducing length and girth to pink healthy tissue with any subungual debris and necrotic tissue removed 10/15/2024 Pain in right foot (ICD-10 - M79.671) 10/15/2024 Pain in left foot (ICD-10 - M79.672) 07/23/2024 Other hammer toe(s) (acquired), left foot (ICD-10 - M20.42) 05/21/2024 Other hammer toe(s) (acquired), left foot (ICD-10 - M20.42) 05/21/2024 Pain in right toe(s) (ICD-10 - M79.674) 07/23/2024 Pain in right toe(s) (ICD-10 - M79.674) 10/15/2024 Atherosclerosis of [place] arteries of extremities with intermittent claudication, bilateral legs (ICD-10 - I70.213) 10/15/2024 Acquired keratosis [keratoderma] palmaris et plantaris (ICD-10 - L85.1) A total of 1 corns or calluses, as described in the note above, were cut and pared utilizing a #15 blade 07/23/2024 Pain in left toe(s) (ICD-10 - M79.675) 05/21/2024 Pain in left toe(s) (ICD-10 - M79.675) 05/21/2024 Unspecified atherosclerosis of [place] arteries of extremities, bilateral legs (ICD-10 - I70.203) Patient educated on risks and aggravating factors of PVD, including conservative treatment options such as a diet and exercise regimen to aid in slowing progression of vascular disease 07/23/2024 Unspecified atherosclerosis of [place] arteries of extremities, bilateral legs (ICD-10 - [...] and no infection or drainage was noted. 05/21/2024 Acquired keratosis [keratoderma] palmaris et plantaris (ICD-10 [...] or drainage was noted. Plan Of Treatment Next Appt Details Provider Name:JEANNINE GUZMAN, 12/17/2024 11:40:00 AM, [address] [place] [address], [phone], Insurance Providers Payer Name Payer Address Payer Phone Subscriber Number Group Number Insured Name Patient Relationship to Insured Coverage Start Date Coverage End Date Medicare Part B [place] [address] [place] [phone] [id number] FAWAD ALDRICH Self - patient is the insured [facility] [address] [place] [phone] [id number] FAWAD ALDRICH Self - patient is the insured Medical (General) History Medical History History ICD Code artificial joint neuropathy open sores Arthritis hypertension Surgical History Surgery Date(Month/Year) Hip Surgery Knee Surgery
--- OUTSIDE RECORDS SUMMARY | 2024-12-09 10:09 | XMS_ITS | Encounter Summary ---
Author Organization [facility] [employer] [facility] Address [address] [place] [address] Care Team Providers Care Foundation Drill Operator Helper Name Role Phone Erich Castillo MD Primary Care Provider [phone] Reason for Visit * Reason Onset Date Comments IGG Levels 12/08/2024 Encounter Details Date Type Department Care Team (Late st Contact Info) Description 12/08/2024 Telephone [facility] Oncology and Hematology - [place] [address] [facility] [address] [place] [address] Ambrosio Wilhelm MD [address] [facility] [address] [place] [address] IGG Levels Social History Tobacco Use Types Packs/Day Years Used Date Smoking Tobacco: Never Smokeless Tobacco: Former Chew Alcohol Use Standard Drinks/Week Comments Yes 0 (1 standard drink = 0.6 oz pur e alcohol) occasional Sex and Gender Information Value Date Recorded Sex Assigned at Not on file Legal Sex Male 10:49 AM CDT Gender Identity Not on file Sexual Orientation Not on file documented as of this encounter Miscellaneous Notes * Telephone Encounter - Roxy Swann - 12/08/2024 9:57 AM CDT Patient would like to get his IGG levels checked again just because he has been having so many ear infections. He is going to come in and get those labs drawn and then we will review once we get the results. * Telephone Encounter - Roxy Swann - 12/08/2024 9:57 AM CDT ----- Message from Dr. Ambrosio Wilhelm sent at 12/07/2024 4:45 PM CDT ----- Regarding: RE: Infection We can recheck his IgG level and if it remains below 600 with frequent ear infections then we can start him on IV IgG treatment. ----- Message ----- From: Roxy Swann Sent: 12/07/2024 3:04 PM CDT To: Ambrosio Wilhelm MD Subject: Infection Patient called today and stated that he has been battling an ear infection for about 2 months now. He has been seeing ENT and they did put tubes in his ears and he has been using ear drops because his ears have been draining. He is not sure if this is something that he needs to make you aware of orif there is something else that you would recommend since he does have low IGG levels. Please advise. documented in this encounter Plan of Treatment Upcoming Encounters Date Type Department Care Team (Late st Contact Info) Description 05/19/2025 10:00 AM CDT Office Visit [facility] Oncology and Hematology - [place] [address] [place] [address] [address] Ambrosio Wilhelm MD [address] [facility] [address] [place] [address] Scheduled Orders Name Type Priority Associated Diagnoses Orde r Schedule IMMUNOGLOBULINS IGG IGA IGM Lab Routine Plasma cell disorder Expected: 12/08/2024, Expires: 12/08/2025 documented as of this encounter Visit Diagnoses Diagnosis 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
--- OUTSIDE RECORDS SUMMARY | 2024-12-09 10:09 | XMS_ITS | Clinical Summary ---
Author Organization [facility] Building [facility] Address [address] [place] [address] Care Team Providers Care Ambulance Mechanic Name Role Phone Erich Castillo MD Primary Care Provider [phone] Allergies No known active allergies Medications allopurinol (ZYLOPRIM) 300 mg tabletIndicatio ns:prevention of acute gout attack Take 1 tablet (300 mg total) by mouth computing machine operator before breakfast 8 Active PARoxetine (PAXIL) 20 [...] 1 tablet (40 mg total) by mouth computing machine operator before breakfast 0 Active potassium chloride ER 20 mEq CR tabletIndicatio ns:prevention Take 1 tablet (20 mEq total) by mouth computing machine operator before breakfast 0 Active montelukast (SINGULAIR) 10 mg tabletIndicatio ns:Maintenance Therapy for Asthma Take 1 tablet (10 mg total) by mouth nightly 0 Active spironolactone (ALDACTONE) 25 mg tabletIndicatio ns:hypertension Take 1 tablet (25 mg total) by mouth computing machine operator before breakfast 1 Active ergocalciferol (VITAMIN D) [...] (04/05/2021): Added automatically from request for surgery [id number] 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 [...] After hours, please contact the ID fellow international coordinator. History of colon polyps 05/10/2020 Overview (05/10/2020): Added automatically from request for surgery [id number] History of total knee arthroplasty, right 2018 Primary osteoarthritis of right knee 05/12/2019 Overview (05/12/2019): Added automatically from request for surgery [id number] Obesity with body mass index 30 or greater 05/20 Nonalcoholic steatohepatitis (ROMERO) 05/21/2013 Abnormal finding on imaging 11/08/2011 Abnormal liver function tests 11/08/2011 Former smoker 11/08/2011 Immunizations Immunization Administration Dates Next Due Influenza, Quadrivalent, Spl it, Preservative Free, Intramuscular 06/03/2018,07/22/2017 Influenza, Trivalent, IM (MDV) 07/03/2012 Influenza, Unspecified 08/08/2016,06/19/2015 Pneumococcal Polysaccharide PPV23 08/08/2016 Tdap 07/03/2012 ZOSTER LIVE 08/08/2016 ZOSTER Recombinant 02/12/2019,11/20/2018 Surgical History Surgery Date Site/Laterality Comments HERNIA REPAIR KNEE ARTHROSCOPY APPENDECTOMY SHOULDER ARTHROSCOPY COLONOSCOPY doesn't know when KNEE ARTHROPLASTY 09/09/2018 - 09/08/2019 Right IR PICC LINE PLACEMENT > 5 YEARS 01/12/2021 N/A Medical History Medical History Date Comments Gout Hypertension Hyperlipidemia Colon polyp Sleep apnea uses cpap nightl y OA (osteoarthritis) Family History Medical History Relation Name Comments Arthritis Father COPD Mother Diabetes Mother Family history of diabetes mellitus - (Added by TW Conv) Hypertension Mother Family history of hypertension - (Added by TW Conv) Stroke Mother Anesthesia problems Neg Hx Relation Name Status Comments Father Mother Social [...] on file Legal 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 Gender Identity Not on file Sexual Orientation Not on file Obstetrics History Last Filed Vital Signs Vital Sign Reading [...] 02/28/2023 7:20 AM CDT Plan of Treatment Health Maintenance Due Date Last Done Comments Hepatitis C Screening 1955 Prostate Cancer Screening-PSA 1955 Hepatitis B Screening 02/06/1974 Pneumococcal vaccine 65+ (2 of 2 - PCV) 08/08/2017 08/08/2016 Depression Screening 05/12/2020 05/12/2019 Abdominal Aortic Aneurysm (A AA) Screen 02/06/2021 Well Visit 65+ 02/06/2021 DTaP/Tdap/Td Vaccine (2 - Td or Tdap) 07/03/2022 07/03/2012 Fall Risk Assessment 03/01/2024 03/01/2023 Influenza Vaccine (#1) 2024 9, 06/03/2018, 07/22/2017, Additional history exists Colon Cancer Screening-Colonoscopy 06/02/2030 06/02/2020 Zoster Vaccine Completed 02/12/2019, 11/07, 08/08/2016 Colon Cancer Screening-CT Colonography Discontinued 06/02/2020 Colon Cancer Screening-DNA Stool Discontinued 09/24/20 20 Colon Cancer Screening-FIT Discontinued 06/02/2020 Colon Cancer Screening-Sigmoidoscopy Discontinued 06/02/2020 Medical Devices Implanted Type Area Manager Of Selection And Assessment Device Identifier Shelf Expiration Date Model / Serial / Lot Depuy Orthopa[employer] Inc [id number] Revision Cement Constrain Knee Right 7 Component Femoral Attune - Sna - [id number] Implanted:Qty: 1 on 04/18/2021 by Familia Merida MD at [facility] Other - see comments Right: Knee Depuy [employer] [id number] 09/08/2030 [id number] / NA / [id number] Description:Implant times ap proximate Depuy [employer] [id number] Attune Revision Full Coated Knee 40 Mm Sleeve Femoral Porocoat Sterile Latex Free - Sna - [id number] Implanted:Qty: 1 on 04/18/2021 by Familia Merida MD at [facility] Other - see comments Right: Knee [employer] [id number] 09/08/2029 [id number] / NA / [id number] Description:Implant times ap proximate Depuy [employer] [id number] Attune H4 Mm Revision Cement Knee Posterior 7 Augment Femoral Sterile Latex Free - Sna - [id number] Implanted:Qty: 1 on 04/18/2021 by Familia Merida MD at [facility] Other - see comments Right: Knee [employer] [id number] 09/08/2030 [id number] / NA / [id number] Description:Implant times ap proximate Depuy [employer] [id number] Attune H4 Mm Revision Cement Knee Distal 7 Augment Femoral Sterile Latex Free - Sna - [id number] Implanted:Qty: 1 on 04/18/2021 by Familia Merida MD at [facility] Other - see comments Right: Knee [employer] [id number] 12/07/2030 [id number] / NA / [id number] Description:Implant times ap proximate Depuy [employer] [id number] Attune H4 Mm Revision Cement Knee Distal 7 Augment Femoral Sterile Latex Free - Sna - [id number] Implanted:Qty: 1 on 04/18/2021 by Familia Merida MD at [facility] Other - see comments Right: Knee [employer] [id number] 12/07/2030 [id number] / NA / [id number] Description:Implant times ap proximate Depuy [employer] [id number] Attune 18mm 60mm Revision Press Fit Knee Stem Femoral Sterile Latex Free - Sna - [id number] Implanted:Qty: 1 on 04/18/2021 by Familia Merida MD at [facility] Other - see comments Right: Knee [employer]uy [employer] [id number] 12/07/2030 [id number] / NA / [id number] Description:Implant times ap proximate Depuy Synthes Vigilix [id number] Attune Revision Cement Rotate Platform Knee 8 Baseplate Tibial - Sna - [id number] Implanted:Qty: 1 on 04/18/2021 by Familia Merida MD at [facility] Other - see comments Right: Knee [employer] [id number] 12/07/2030 [id number] / NA / [id number] Description:Implant times ap proximate Depuy [employer]ynthes V[employer]ilix [id number] Attune L53 Mm Revision Full Coated Knee Sleeve Tibial Porocoat Sterile Latex Free - Sna - [id number] Implanted:Qty: 1 on 04/18/2021 by Familia Merida MD at [facility] Other - see comments Right: Knee [employer] [id number] 03/08/2031 [id number] / NA / [id number] Description:Implant times ap proximate Depuy [employer] Inc [id number] Attune 18mm 60mm Revision Press Fit Knee Stem Femoral Sterile Latex Free - Sna - [id number] Implanted:Qty: 1 on 04/18/2021 by Familia Merida MD at [facility] Other - see comments Right: Knee [employer] [id number] 12/07/2030 [id number] / NA / [id number] Description:Implant times ap proximate Depuy S[employer]s Vigilix [id number] Attune 10mm Revision Constrain Rotate Platform Knee 7 Insert - Sna - [id number] Implanted:Qty: 1 on 04/18/2021 by Familia Merida MD at [facility] Other - see comments Right: Knee [employer]uy [employer] [id number] 10/09/2024 [id number] / NA / [id number] Description:Implant times ap proximate [employer] Rskfmd Remedy Stem Knee Medium Component Femoral - [id number] Implanted:Qty: 1 on 01/10/2021 by Familia Merida MD at [facility] Right: Knee [employer] [id number] 03/08/2024 RSKFMD / / [id number] Description:All implant time s are approximate. Biocomposites 620-020 Stimulan Rapid Cure Kit Paste Nursery Worker 20cc 50cc Bone Void - [id number] Implanted:Qty: 1 on 01/10/2021 by Familia Merida MD at [facility] Right: Knee [employer] [id number] 08/08/2023 620-020 / / [id number] Description:All implant time s are approximate. Antibiotic mixture: Vancomycin 2000 mg powder and Tobramycin 480 mg (80 mg/2 ml) [employer] Hyg227 Remedy 175mm Stem Extension Knee Component Femoral - [id number] Implanted:Qty: 1 on 01/10/2021 by Familia Merida MD at [facility] Right: Knee [employer] [id number] 01/07/2024 KDS851 / / [id number] Description:All implant time s are approximate. [employer] [id number] Remedy 175mm Stem Extension Knee Component Femoral - [id number] Implanted:Qty: 1 on 01/10/2021 by Familia Merida MD at [facility] Right: Knee [employer] [id number] 04/08/2024 AWI073 / / [id number] Description:All implant time s are approximate. [employer] [id number] Palacos R High Viscosity Cement 40gm Bone Green - [id number] Implanted:Qty: 1 on 01/10/2021 by Familia Merida MD at [facility] Right: Knee [employer] 07/09/2023 [id number] / / [id number] Description:All implant time s are approximate. [employer] [id number] Palacos R High Viscosity Cement 40gm Bone Green - [id number] Implanted:Qty: 1 on 01/10/2021 by Familia Merida MD at [facility] Right: Knee [employer] 07/09/2023 [id number] / / [id number] Description:All implant time s are approximate. [employer] Rsktlg Remedy Stem Knee Large Component Tibial - [id number] Implanted:Qty: 1 on 01/10/2021 by Familia Merida MD at [facility] Right: Knee [employer] [id number] 04/08/2024 RSKTL / / [id number] Description:All implant time s are approximate. Biocom[employer] 620-010 RuffaloCODY Rapid Cure Kit Paste Nursery Worker 10cc 20cc Bone Void - [id number] Implanted:Qty: 1 on 04/18/2021 by Familia Merida MD at [facility] Right: Knee [employer] 11/07/2023 620-010 / / [id number] Description:TOBRAMYCIN HALF DOSE OF 1.2G AND VANCOMYCIN 1 GRAM MIXED IN STIMULAN Depuy Orthopaed[employer] Inc [id number] Smartset Medium Viscosity Cement 40gm Bone Gentamicin - [id number] Implanted:Qty: 1 on 04/18/2021 by Familia Merida MD at [facility] Right: Knee [employer] 08/08/2022 [id number] / / [id number] Depuy Orthopaed[employer] Inc Cup 55mm Acetabular Bi Mentum Femoral Proximal Press Fit [id number] - [id number] Implanted:Qty: 1 on 02/28/2023 by Familia Merida MD at [facility] Right: Hip [employer]uy [employer] 11/06/2024 [id number] / / Depuy [employer] Inc Liner Acet Hip Size 28 Poly Bi Mentum Altrx 55mm [id number] - [id number] Implanted:Qty: 1 on 02/28/2023 by Familia Merida MD at [facility] Right: Hip [employer] [id number] 06/08/2027 [id number] / / Depuy Orthopaed[employer] Inc Actis Collar Hip 8 Standard Offset Stem Femoral [id number] - [id number] Implanted:Qty: 1 on 02/28/2023 by Familia Merida MD at [facility] Right: Hip [employer] [id number] 10/09/2032 [id number] / / Depuy Orth[employer] Inc Articul/Cristiano 28mm Cementless Hip +1.5mm /14 Taper Head Femoral Latex Free [id number] - [id number] Implanted:Qty: 1 on 02/28/2023 by Familia Merida MD at [facility] Right: Hip [employer] [id number] 12/08/2027 [id number] / / Explanted Type Area Manager Of Selection And Assessment Device Identifier Shelf Expiration Date Model / Serial / Lot Depuy Orthopaed[employer] Inc [id number] Attune Cruciate Retain Cementless Knee Right 7 Component Femoral - [id number] Implanted:Qty: 1 on 06/01/2019 by Carroll Cardenas MD at [facility] Explanted:Qty: 1 on 01/10/2021 at [facility] Right: Knee [employer] 01/07/2028 [id number] / / [id number] Depuy Orth[employer] Inc [id number] Attune 6mm Cruciate Retaining Rotate Platform Knee 7 Insert - [id number] Implanted:Qty: 1 on 06/01/2019 by Carroll Cardenas MD at [facility] Explanted:Qty: 1 on 01/10/2021 at [facility] Right: Knee [employer] Inc 09/08/2023 [id number] / / [id number] Depuy Orth[employer] Inc [id number] Attune Cementless Rotate Platform Knee 9 Baseplate Tibial - [id number] Implanted:Qty: 1 on 06/01/2019 by Carroll Cardenas MD at [facility] Explanted:Qty: 1 on 01/10/2021 at [facility] Right: Knee [employer] 10/09/2028 [id number] / / [id number] Explanted Right Knee Antibiotic Femoral And Tibia Spacer Explanted:Qty: 1 on 04/18/2021 at [facility] Right: Knee [employer] Procedures Procedure Name Priority Date/Time Associated Diagnosis Comments COLONOSCOPY 06/02/2020 10:21 AM CDT from Last 3 Months or Most Recently Relevant to Health Maintenance Results * COLONOSCOPY (06/02/2020 10:21 AM CDT) Anatomical Region Laterality Modality Other Narrative Procedure Note Gustavo Darling MD - 06/02/2020 10:[address] [facility] Patient Name: Tavon Marsh Procedure Date: 06/02/2020 10:21 AM Date of : 1955 Admit Type: Outpatient Age: 65 Gender: Male Attending MD: Gustavo Darling M.D. Room: [facility]COPY ROOM 2 Note Status: Finalized Patient Profile: Refer to note in patient chart for documentation of history and physical. Procedure: Colonoscopy Indications: High risk colon cancer surveillance: Personalhistory of colonic polyps Referring MD: Erich Castillo M.D. Providers: Gustavo R. Lisset, M.D. Impression: - Hemorrhoids found on perianal [...] scope was passed under direct vision.The Colonoscope [id number] was introducedthrough the anus and advanced to [...] 10:21 AM Procedure Code(s): --- Professional --- 34082, Colonoscopy, flexible; with removal of tumor(s), polyp(s), or other lesion(s) by hot biopsy forceps Diagnosis Code(s): --- Professional --- D12.2, Benign neoplasm of ascending colon D12.4, Benign neoplasm of descending colon K64.9, Unspecified hemorrhoids Z86.010, Personal history of colonic polyps CPT copyright 2017 [employer]. All rights reserved. The codes documented in this report are preliminary and upon coater operator reviewmay be revised to meet current compliance requirements. Recognized by the [place] [employer] for promoting quality in endoscopy Gustavo Darling MD ENDOSCOPY PROCEDURES Final Re sult from Last 3 Months or Most Recently Relevant to Health Maintenance Insurance MEDICARE MEDICARE COMMERCIAL GENERIC MEDICARE [facility] MEDICARE [place] [employer] Advance Directives For more information, please contact: [phone] * Full Code (Latest Code Status on [...] 9:06 AM 06/02/2020 9:06 AM Care Teams Ambulance Mechanic Relationship Specialty Start Date End Date Erich Castillo MD PCP - General Internal Medicine 07/22/18
--- OUTSIDE RECORDS SUMMARY | 2024-12-09 10:09 | XMS_ITS ---
Author Organization [facility] Address [address] [place], [place] [address] Care Team Providers Care Foam Rubber Fabricator Name Role Phone TEDDY FRITZ Unavailable [phone] Anna Erich Unavailable Unavailable Allergies Allergen (clinical drug ingredient) Drug/Non Drug Allergy documented on EMR Reaction Allergy Type Onset Date Status Adhesive Unknown Allergy Active Latex Latex Unknown Allergy Active REASON FOR VISIT Patient presents for at-risk foot care . The patient has painful toenails and calluses that are causing difficulty with ambulation and shoegear. The onset is gradual Medications Medication SIG (Take, Route, Frequency, Duration) [...] 25 MG Oral for 90 Days Active Doxycycline Monohydrate 100 MG TAKE 1 CAPSULE BY MOUTH TWICE A DAY Oral for 15 Days Active Encounters Encounter Location Date Provider Diagnosis [address] [id number] 10/15/2024 TEDDY FRITZ Tinea unguium B35.1 ; Pain in right foot M79.671 ; Pain in left foot M79.672 ; Atherosclerosis of [place] arteries of extremities with intermittent claudication, bilateral legs I70.213 and Acquired keratosis [keratoderma] palmaris et plantaris L85.1 Assessments Encounter Date Diagnosis (ICD Code) Assessment Notes Treatment Notes Treatment Clinical Notes Section Notes 10/15/2024 Tinea unguium (ICD-10 - B35.1) Nails 1-5 Bilateral were debrided extensively with nail nippers and emery board, reducing length and girth to pink healthy tissue with any subungual debris and necrotic tissue removed 10/15/2024 Pain in right foot (ICD-10 - M79.671) 10/15/2024 Pain in left foot (ICD-10 - M79.672) 10/15/2024 Atherosclerosis of [place] arteries of extremities with intermittent claudication, bilateral legs (ICD-10 - I70.213) 10/15/2024 Acquired keratosis [keratoderma] palmaris et plantaris (ICD-10 - L85.1) A total of 1 corns or calluses, as described in the note above, were cut and pared utilizing a #15 blade Plan Of Treatment Treatment Notes Assessment Notes Tinea unguium Nails 1-5 Bilateral were debrided extensively with nail nippers and emery board, reducing length and girth to pink healthy tissue with any subungual debris and necrotic tissue removed Acquired keratosis [keratode rma] palmaris et plantaris A total of 1 corns or calluses, as described in the note above, were cut and pared utilizing a #15 blade Next Appt Details Follow Up: 10 - 12 weeks, Re ason: At-Risk Foot care, sooner if problems develop. Provider Name:JEANNINE GUZMAN, 12/17/2024 11:40:00 AM, [address] [place] [address], [id number], Progress Notes * FAWAD ALDRICH KDOB:[birth year] (69 yo M)Acc No.[id number]:10/15/2024 Patient: Dasia AVIVALARSFAWAD Dov Provider: Agusto Fritz DPM :1955 A ge:69 Y S ex:Male Date:10/15/2024 Address:[address] [id number] Subjective: * Chief Complaints: * Luna tapia presents for at-risk foot care . The patient has painful toenails and calluses that are causing difficulty with ambulation and shoegear. The onset is gradual * HPI: H PI: General care Luna tapia presents to the office for at risk foot care. Patient states that their nails are thickened, elongated and painful. Patient states that it is aggravated by shoe gear. Onset is gradual. Patient denies being diabetic., Patient denies taking blood thinners., Date last seen by Dr. Castillo was 09/2024., Initials mca. * Medical History: * Surgical History: * Hospitalization/Major Diagno stic Procedure: * Medications: T akingFurosemide 40 MG Tablet Oral PARoxetine HCl 20 MG Tablet Oral Cefdinir 300 MG Capsule TAKE 1 CAPSULE BY MOUTH EVERY 12 HOURS Oral Doxycycline Monohydrate 100 MG Capsule TAKE 1 CAPSULE BY MOUTH TWICE A DAY Oral Carvedilol 25 MG Tablet TAKE 1 TABLET BY MOUTH TWICE A DAY WITH FOOD Oral Spironolactone 25 MG Tablet Oral Medication List reviewed and reconciled with the patientTaking Furosemide 40 MG Tablet Oral Taking PARoxetine HCl 20 MG Tablet Oral Taking Cefdinir 300 MG Capsule TAKE 1 CAPSULE BY MOUTH EVERY 12 HOURS Oral Taking Doxycycline Monohydrate 100 MG Capsule TAKE 1 CAPSULE BY MOUTH TWICE A DAY Oral Taking Carvedilol 25 MG Tablet TAKE 1 TABLET BY MOUTH TWICE A DAY WITH FOOD Oral Taking Spironolactone 25 MG Tablet Oral Medication List reviewed and reconciled with the patient * Allergies: L atexAdhesiveno[Allergies Verified] Objective: * Vitals: * Examination: P hysical Examination: General appearance: A lert, pleasant, well-nourished and in no acute distress. D ermatologic: Skin findings: S kin is thin, atrophic and lacking pedal hair. Hypertrophic / hyperkeratotic lesion: p lantar aspect of the right 1st metatarsal head. Nail pathology: N ails 1, 2, 3, 4, and 5 bilateral are elongated, thick, discolored, and dystrophic with subungual debris. They are painful to palpation. ? V ascular: Dorsalis pedis pulse: 1 /4 b ilateral. Posterior tibial pulse: 0 /4 bilateral. Capillary refill: g reater than 3 seconds. Edema: N o edema bilateral. N eurologic: Gross sensation G rossly intact to light touch. There is negative Tinel's sign. M usculoskeletal: Muscle Strength M uscle strength is 5/5 in regards to dorsiflexion, plantarflexion, inversion, and eversion in bilateral lower extremities. ? Assessment: * Assessment: 1. T inea unguium - B35.1 (Primary) 2 . P ain in right foot - M79.671 ? 3 . P ain in left foot - M79.672 4 . A therosclerosis of [place] arteries of extremities with intermittent claudication, bilateral legs - I70.213 5 . Acquired keratosis [keratoderma] palmaris et plantaris - L85.1 Plan: * Treatment: 2. A cquired keratosis [keratoderma] palmaris et plantaris Notes: A total of 1 corns or calluses, as described in the note above, were cut and pared utilizing a #15 blade * Procedure Codes: 1 1055 TRIM SKIN LESION, Modifiers: Q8 19718 DEBRIDE NAIL, 6 OR MORE, Modifiers: 59 , Q8 * Follow Up: 1 0 - 12 weeks (Reason: At-Risk Foot care, sooner if problems develop.) * Billing Information: * Visit Code: * Procedure Codes: 73010 TRIM SKIN LESION. Modifiers: Q8 10185 DEBRIDE NAIL, 6 OR MORE. Modifiers: 59, Q8 * EEP Sign off status: Completed true * Provider: Agusto Fritz DPM Date: 10/15/2024 Generated for Iris Matre/Leticia on: 0 12/09/2024 10:09 AM CDT History [...] Date last seen by Dr. Castillo was 09/2024., Initials mca Examination Category Sub-Category Detail Notes Category Not es Dermatologic Skin findings: Skin is thin, at rophic and lacking pedal hair Nail pathology: Nails 1, 2, 3, 4, an d 5 bilateral are elongated, thick, discolored, and dystrophic with subungual debris. They are painful to palpation Hypertrophic / hyperkeratotic lesion: pl govind aspect of the right 1st metatarsal head Neurologic Gross sensation Grossly intact t o light touch. There is negative Tinel's sign Vascular Dorsalis pedis pulse: 1/4 bilateral Edema: No edema bilateral Capillary refill: greater than 3 secon ds Posterior tibial pulse: 0/4 bilateral Physical Examination General appearance: Alert, pleasant, well-nourished and in no acute distress Musculoskeletal Muscle Strength Muscle strength is 5/5 in regards to dorsiflexion, plantarflexion, inversion, and eversion in bilateral lower extremities
--- OUTSIDE RECORDS SUMMARY | 2024-12-09 10:10 | XMS_ITS ---
Author Organization [facility] Address [address] [place], [place] [address] Care Team Providers Care Special Event Assistant Name Role Phone TEDDY FRITZ Unavailable [phone] Erich Castillo Unavailable Unavailable REASON FOR VISIT *General care Encounters Encounter Location Date Provider Diagnosis [address] [phone] 09/24/2024 TEDDY FRITZ Plan Of Treatment Next Appt Details Provider Name:JEANNINE GUZMAN, 12/17/2024 11:40:00 AM, [address] [place] [address], [phone], Progress Notes * FAWAD ALDRICH KDOB:[birth year] (69 yo M)Acc No.[id number]:09/24/2024 Patient: Dasia RESTREPOFAWAD Dov Provider: Agusto Fritz DPM :1955 A ge:69 Y S ex:Male Date:09/24/2024 Address:[address], [id number] Subjective: * Chief Complaints: * 1 . *General care. * Medical History: Objective: * Vitals: Assessment: Plan: * Treatment: * Billing Information: * Visit Code: * Procedure Codes: * Electronic signature of TEDDY FRITZ DPM on 12/09/2024 at 10:09 AM CDT Sign off status: Pending * Provider: Agusto Fritz DPM Date: 0 09/24/2024 Generated for Iris loo/García/Fouziasmitting on: 0 12/09/2024 10:09 AM CDT
[2024-12-09 11:29] LABS: Alanine Aminotransferase 37 U/L (6-50); Albumin Level 4.7 g/dL (3.5-5.1); Alkaline Phosphatase 75 U/L (38-126); Anion Gap 8 mmol/L (4-12); Aspartate Amino Transferase 36 U/L (17-59); Bilirubin,Total 0.7 mg/dL (0.2-1.3); Blood Urea Nitrogen 15 mg/dL (9-20); Carbon Dioxide 29 mmol/L (22-30); Chloride 99 mmol/L (98-107); Estimated Glomerular Filt Rate > 60; Glucose 117 mg/dL (65-110); Potassium 4.3 mmol/L (3.4-5.0); Sodium 136 mmol/L (137-145)
[2024-12-09 11:50] LABS: Immunoglobulin G 474 mg/dL (700-1600)
[2024-12-09 11:53] LABS: Immunoglobulin A < 40 mg/dL (70-400); Immunoglobulin M < 25 mg/dL (40-230)
== END 2024-12-09 09:23 | disposition home or self-care (01) ==
LOC: ANHLAB 09:25
PROVIDERS: PCP Internal Medicine; Visit Provider Internal Medicine Hematology & Oncology
DX: D72.9 Disorder of white blood cells, unspecified (principal)
CPT/HCPCS: 36415; 80053; 82784; 85025

== ENCOUNTER 2025-07-28 11:41 | Outpatient (CLI) | payer MEDICARE, SELFPAY ==
[2025-07-28 12:39] LABS: Influenza A QL RT-PCR Negative (Negative); Influenza B QL RT-PCR Negative (Negative); SARS-CoV-2 RNA PCR Negative (Negative)
[2025-07-28 12:57] LABS: Strep Group A RT-PCR NOT DETECTED (Negative)
--- OUTSIDE RECORDS SUMMARY | 2025-07-28 17:06 | XMS_ITS | Clinical Summary ---
Author Organization [facility] Address [address] [place] [address] Phone Care Team Providers Care Transportation Solutions Manager Name Role Phone Erich Castillo MD Primary Care Provider Allergies No known active allergies Medications allopurinol (ZYLOPRIM) 300 MG Tablet Take 300 mg by mouth nightly. Active carvedilol (COREG) 25 MG Tablet Take 25 mg by mouth 2 times daily. Active eplerenone (INSPRA) 25 MG Tablet Take 25 mg by mouth every morning. Active fluticasone (FLONASE) 50 MCG/ACT Suspension 1 [place] by Nasal route as needed. 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 Gender Identity Not on file Sexual Orientation [...] on file Medical Devices Implanted Type Area Commercial Drone Pilot Device Identifier Shelf Expiration Date Model / Serial / Lot Tube Ventilation 1.14mm Lang Bevel Grommet Ear [place] [employer] - [id number] Implanted:Qty: 1 on 11/17/2024 by Osito Rueda MD at [facility] IMPLANT Right: Ear [employer] 02/09/2030 [id number] / [id number] / [id number] Tube Ventilation 1.14mm Lang Bevel Grommet Ear [place] [employer] - [id number] Implanted:Qty: 1 on 11/17/2024 by Osito Rueda MD at [facility] IMPLANT Left: Ear [employer] 11/17/2033 [id number] / [id number] / [id number] Insurance MEDICARE COMMERCIAL GENERIC Care Teams Transportation Solutions Manager Relationship Specialty Start Date End Date Erich Castillo MD [address] [place] [address] PCP - General Internal Medicine 11/17/24
--- OUTSIDE RECORDS SUMMARY | 2025-07-28 17:06 | XMS_ITS | Encounter Summary ---
Author Organization [facility] Address [address] [place] [address] Phone Care Team Providers Care Bariatric Program Coordinator Name Role Phone Erich Castillo MD Primary Care Provider [phone] Encounter Details Date Type Department Care Team (Latest Contact Info) Description 11/11/2024 Transcribe Orders 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 Gender Identity Not on file Sexual Orientation Not on file documented as of this encounter Functional Status * Height and Weight Question Answer Date of Assessment Author Height 72 11/11/2024 2:05 PM Kianna Mejía RN Weight 4720 11/11/2024 2:05 PM Kianna Mejía RN BMI (Calculated) 40.1 11/11/2024 2:05 PM Kianna Reese RN Weight Method Stated 11/11/2024 2:05 PM Kianna Mejía RN * BSA (Calculated - sq m) Answer Date of Assessment Author 2.61 11/11/2024 2:05 PM Kianna Mejía RN * Medical Decision Maker Assessment Answer Date of Assessment Author Patient is medical decision-maker 11/11/2024 2:0 5 PM Kianna Mejía RN * Power of Home Health Manager for Health Care (POA-HC) Answer Date of Assessment Author No POA-HC form, education pr ovided and assistance offered. 11/11/2024 2:05 PM Kianna Mejía RN * Do Not Resuscitate (DNR) Answer Date of Assessment Author No DNR form present 11/11/2024 2:05 PM Kianna Mejía RN * [place] DNR/Physician Orders for Life Sustaining Treatment (POLST) or [place] Physician Orders for Scope of Treatment (POST) Answer Date of Assessment Author No POLST/POST form present 11/11/2024 2:05 PM Kianna Millan RN * Living Will Answer Date of Assessment Author No Living Will present 11/11/2024 2:05 PM Kianna Higgins RN * Question Answer Date of Assessment Author BMI (Calculated) 40.1 11/11/2024 2:05 PM Kianna Reese RN Weight Method Stated 11/11/2024 2:05 PM Kianna Mejía RN * Medical Decision Maker Assessment Answer Date of Assessment Author Patient is medical decision-maker 11/11/2024 2:0 5 PM Kianna Mejía RN * Power of Home Health Manager for Health Care (POA-HC) Answer Date of Assessment Author No POA-HC form, education pr ovided and assistance offered. 11/11/2024 2:05 PM Kianna Mejía RN * Do Not Resuscitate (DNR) Answer Date of Assessment Author No DNR form present 11/11/2024 2:05 PM Kianna Mejía RN * [place]NR/Physician Orders for Life Sustaining Treatment (POLST) or [place] Physician Orders for Scope of Treatment (POST) Answer Date of Assessment Author No POLST/POST form present 11/11/2024 2:05 PM Kianna Millan RN * Living Will Answer Date of Assessment Author No Living Will present 11/11/2024 2:05 PM PROFESSOR OF FINE ART Le e, Kianna B, RN documented as of this encounter Mental Status * Question Answer Entry Date Author Weight 4720 11/11/2024 2:05 PM Kianna Mejía RN Weight Method Stated 11/11/2024 2:05 PM Kianna Mejía RN * Medical Decision Maker Assessment Answer Entry Date Author Patient is medical decision-maker 11/11/2024 2:0 5 PM Kianna Mejía, RN * Power of Home Health Manager for Health Care (POA-HC) Answer Entry Date Author No POA-HC form, education pr ovided and assistance offered. 11/11/2024 2:05 PM Kianna Mejía RN * Do Not Resuscitate (DNR) Answer Entry Date Author No DNR form present 11/11/2024 2:05 PM Kianna Mejía RN * [place] DNR/Physician Orders for Life Sustaining Treatment (POLST) or [place] Physician Orders for Scope of Treatment (POST) Answer Entry Date Author No POLST/POST form present 11/11/2024 2:05 PM Kianna Millan RN * Living Will Answer Entry Date Author No Living Will present 11/11/2024 2:05 PM Kianna Higgins RN documented in this encounter Plan of Treatment Not on file documented as of this encounter Visit Diagnoses Diagnosis Pre-op testing- Primary Preoperative examination, unspecified documented in this encounter Care Teams Bariatric Program Coordinator Relationship Specialty Start Date End Date Erich Castillo MD [address] [place] [address] PCP - General Internal Medicine 11/17/24 documented as of this encounter
--- OUTSIDE RECORDS SUMMARY | 2025-07-28 17:06 | XMS_ITS | Clinical Summary ---
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 Gender Identity Not on file Sexual Orientation Not on file Plan of Treatment Health Maintenance Due Date Last Done Comments Colorectal Cancer Screening Colonoscopy (10 Years) 1955 Hepatitis C 02/06/1974 DTaP, Tdap and Td Vaccines ( 1 - Tdap) 02/06/1975 Pneumococcal Vaccine: 50+ Ye ars (1 of 1 - PCV) 02/06/2006 Zoster Vaccines (1 of 2) 02/06/2006 COVID-19 Vaccine ( - 2024-2 6 season) 2025 Influenza Adult (#1) 2025 RSV Immunization or 60+ Years (1 - 1-dose 75+ series) 02/06/2031 Hepatitis A Vaccines Aged Out No long er eligible based on patient's age to complete this topic Meningococcal B Vaccine Aged Out No l onger eligible based on patient's age to complete this topic Meningococcal Vaccine Aged Out No tiffanie yuni eligible based on patient's age to complete this topic RSV Immunizations Under 20 Months Aged Out No longer eligible based on patient's age to complete this topic
--- OUTSIDE RECORDS SUMMARY | 2025-07-28 17:06 | XMS_ITS | Clinical Summary ---
Author Organization [facility] Stan bravo Javier Address [address] [place] [address] Care Team Providers Care Customer Supply Chain Analyst Name Role Phone Erich Castillo MD Primary Care Provider [phone] Allergies No known active allergies Medications allopurinoL [...] Encounters Date Type Department Care Team Description 06/30/2025 External Device Data STL ABSTRACTION Provider, Abstract 06/21/2025 Orders Only [facility] Oncology and Hematology [place] [address] [place] [address] Ambrosio Wilhelm MD 06/17/2025 11:45 AM CDT Office Visit [facility]ematology [place] [address] [place] [id number] Ambrosio Wilhelm MD Plasma cell disorder (Primary Dx) 05/18/2025 Abstract [facility] Oncology and Hematology - Juan Pablo [address] [place] [id number] Carol Candelaria MD 05/18/2025 Orders Only [facility] Oncology and Hematology [facility] [address] [place] [address] Ambrosio Wilhelm MD Plasma cell disorder (Primary Dx) 05/17/2025 Telephone [facility] Oncology and Hematology [facility] [address] [place] [address] Carol Candelaria MD Surgical Clearance from Last 3 Months Family History Medical [...] Sign Reading Time Taken Comments Blood Pressure 175/83 06/17/2025 11:18 AM CDT Pulse 63 06/17/2025 11:16 AM CDT Temperature 36.4 C (97.6 F) 06/17/2025 11:16 AM CDT Respiratory Rate 15 06/17/2025 11:16 AM CDT Oxygen Saturation 97% 06/17/2025 11:16 AM CDT Inhaled Oxygen Concentration - - Weight 135 kg (297 lb 9.6 oz) 06/17/2025 11:16 A M CDT Height 180.3 cm (5' 11) 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 Body Mass Index 41.51 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 Plan of Treatment Upcoming Encounters Date Type Department Care Team (Late st Contact Info) Description 12/16/2025 11:30 AM CDT Office Visit [facility] Oncology and Hematology - [place] [address] [place] [address] Ambrosio Wilhelm MD [address] [facility] [address] [place] [address] Health Maintenance Due Date Last Done Comments Pre-Diabetes and Diabetes Screening 1955 FIT-DNA Q 3 years 02/06/2001 FIT/FOBT Q 1 year 02/06/2001 Flex Sig/CT Colonography Q 5 years 02/06/2001 RSV VACCINE (60+ or ) (1 - Risk 50-74 years 1-dose series) 02/06/2006 PNEUMOCOCCAL VACCINE 50+ YEA RS (2 of 2 - PCV) 08/08/2017 08/08/2016 DTAP/TDAP/TD VACCINES (2 - T d or Tdap) 07/03/2022 07/03/2012 INFLUENZA VACCINE (#1) 2025 8, 07/22/2017, 07/03/2012 COLORECTAL SCREENING 06/02/2030 06/02/2020, 06/02/20 20 Colorectal Cancer Screening 06/02/2030 ZOSTER VACCINE Completed 02/12/2019, 11/07, 08/08/2016 Procedures Procedure Name Priority Date/Time Associated Diagnosis Comments IMMUNOGLOBULINS IGG IGA IGM Routine 11/2024 11:45 AM CDT CBC WITH AUTODIFFERENTIAL Routine 2024 11:23 AM CDT from Last 3 Months Results * IMMUNOGLOBULINS IGG IGA IGM (06/11/2025 11:45 AM CDT) Blood Ambrosio Wilhelm MD CHEMISTRY ORDERABLES Final Resu lt * CBC WITH AUTODIFFERENTIAL (06/11/2025 11:23 AM CDT) Blood Ambrosio Wilhelm MD HEMATOLOGY ORDERABLES Final Res ult from Last 3 Months Insurance MEDICARE PART A AND B [facility] Care Teams Customer Supply Chain Analyst Relationship Specialty Start Date End Date Erich Castillo MD [address] [place] [id number] PCP - General Internal Medicine 08/26/23
== END 2025-07-28 11:42 | disposition home or self-care (01) ==
LOC: CHSLAB 11:42
PROVIDERS: PCP Internal Medicine; Visit Provider Nurse Practitioner Family
DX: J06.9 Acute upper respiratory infection, unspecified (principal); R09.81 Nasal congestion
CPT/HCPCS: 87636; 87651